=== PATIENT | male | born 1940 | race Caucasian/White ===

== ENCOUNTER 2023-01-23 15:32 | Emergency (ER) | payer OTHER ==
[~2023-01-23] VITALS: Ht 175.3 cm; Wt 94.3 kg
[2023-01-23 16:10] LABS: BASOPHILS # (AUTO) 0.03 K/uL (0.00-0.20); BASOPHILS % (AUTO) 0.5 % (0.0-5.0); EOSINOPHILS # (AUTO) 0.06 K/uL (0.00-0.70); HEMATOCRIT 21.4 % (42-54); IMMATURE GRANULOCYTE ABSOLUTE 0.05 K/uL (0-1); LYMPHOCYTES # (AUTO) 0.9 K/uL (1.0-4.8); LYMPHOCYTES % (AUTO) 15.4 % (21.0-51.0); MEAN CORPUSCULAR HEMOGLOBIN 33.5 pg (27.0-33.0); MEAN CORPUSCULAR HGB CONC 30.4 g/dL (32.0-36.0); MEAN CORPUSCULAR VOLUME 110.3 fL (79-99); MONOCYTES # (AUTO) 0.9 K/uL (0.1-1.0); MONOCYTES % (AUTO) 15.5 % (3.0-13.0); NEUTROPHILS # (AUTO) 3.8 K/uL (1.8-7.7); NEUTROPHILS % (AUTO) 66.7 % (40.0-77.0); PLATELET COUNT (AUTO) 166 K/uL (130-400); RED BLOOD CELL COUNT(AUTO) 1.94 MIL/uL (4.50-6.20); RED CELL DISTRIBUTION WIDTH 17.4 % (11.0-15.5); WHITE BLOOD COUNT (AUTO) 5.7 K/uL (4.8-10.8)
[2023-01-23 16:20] LABS: CREATININE 0.9 mg/dL (0.5-1.5); POTASSIUM 4.4 mmol/L (3.5-5.1)
[2023-01-23 16:24] LABS: ALBUMIN 2.8 g/dL (3.5-5.0); BILIRUBIN,TOTAL 0.4 mg/dL (0.2-1.0); TOTAL PROTEIN, SERUM 6.4 g/dL (6.0-8.3)
[2023-01-23 18:59] VITALS: O2SAT 94
[2023-01-23 20:07] VITALS: BP 132/48; PULSE 99; RESP 17
== END 2023-01-23 20:05 | disposition left against medical advice (07) ==
LOC: EDH 15:32
DX: R79.89 Other specified abnormal findings of blood chemistry (principal); I10 Essential (primary) hypertension
CPT/HCPCS: 99285; 36430; 82270; 80053; 85025; 86850; 86900; 86901; 86923; 36415; P9016

== ENCOUNTER 2024-03-16 12:28 | Inpatient (IN) | payer OTHER ==
[~2024-03-16] VITALS: Ht 175.3 cm; Wt 91.0 kg
--- NOTE | 2024-03-16 13:04 | EKG ---
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
[2024-03-16 13:33] LABS: BASOPHILS # (AUTO) 0.11 K/uL (0.00-0.20); BASOPHILS % (AUTO) 1.1 % (0.0-5.0); EOSINOPHILS # (AUTO) 0.11 K/uL (0.00-0.70); EOSINOPHILS % (AUTO) 1.1 % (0.0-8.0); HEMATOCRIT 35.5 % (42-54); IMMATURE GRANULOCYTE ABSOLUTE 0.05 K/uL (0-1); LYMPHOCYTES # (AUTO) 1.2 K/uL (1.0-4.8); LYMPHOCYTES % (AUTO) 11.7 % (21.0-51.0); MEAN CORPUSCULAR HEMOGLOBIN 34.9 pg (27.0-33.0); MONOCYTES # (AUTO) 1.2 K/uL (0.1-1.0); MONOCYTES % (AUTO) 11.7 % (3.0-13.0); NEUTROPHILS # (AUTO) 7.3 K/uL (1.8-7.7); NEUTROPHILS % (AUTO) 73.9 % (40.0-77.0); PLATELET COUNT (AUTO) 159 K/uL (130-400); RED BLOOD CELL COUNT(AUTO) 3.35 MIL/uL (4.50-6.20); RED CELL DISTRIBUTION WIDTH 15.7 % (11.0-15.5); WHITE BLOOD COUNT (AUTO) 9.9 K/uL (4.8-10.8)
[2024-03-16 13:41] LABS: POTASSIUM 4.5 mmol/L (3.5-5.1)
[2024-03-16 13:45] LABS: ALBUMIN 3.6 g/dL (3.5-5.0); BILIRUBIN,DIRECT 0.3 mg/dL (0.0-0.3); BILIRUBIN,TOTAL 0.9 mg/dL (0.2-1.0); TOTAL PROTEIN, SERUM 7.7 g/dL (6.0-8.3)
[2024-03-16 13:52] LABS: INR 0.97 (0.85-1.15); PROTHROMBIN TIME 10.9 SEC (9.6-11.6)
--- NOTE | 2024-03-16 14:11 | HMCIMG ---
CHEST 1VW REASON: sob COMPARISON: None. FINDINGS: Single view of the chest was obtained. Lungs are clear. Heart size is normal. There is no pulmonary vascular congestion. Mediastinum and bony thorax appear unremarkable. IMPRESSION: 1. Normal single view chest x-ray.
[2024-03-16 14:14] LABS: B-TYPE NATRIURETIC PEPTIDE 625 pg/mL (0-100)
--- NOTE | 2024-03-16 14:24 | ERN ---
ED Note History of Present Illness Stated Complaint: SOB HX OF ANEMIA Chief Complaint: Shortness of Breath Time Seen by MD: 12:39 Dictation: 83-year-old male with a history of anemia presents to the ED for evaluation of shortness a breath onset one week ago. Patient reports palpitations, but denies any other associated symptoms at this time. Patient also mentioned he sometimes gets blood transfusions. Allergies: Coded Allergies: No Known Allergies (Unverified Allergy, Unknown, 01/23/23) Past Medical History Past Medical History: A-Fib, Anemia, CAD Surgical History: Other Surgical History Other: HIP Review of System Dictation Constitutional: Negative for fever,chills, and weight loss Eyes: Negative for injury, pain,redness, and discharge ENT: Negative for injury,pain or swelling Cardiovascular: Positive for palpitations,Negative for chest pain, and edema Respiratory: Positive for shortness of breath negative for cough, and wheezing, Abdomen/GI: Negative for abdominal pain, nausea, vomiting, diarrhea, and constipation Back: Negative for injury and pain : Negative for injury, bleeding and discharge MS/Extremity: Negative for injury and deformity Skin: Negative for rash, and discoloration Neuro: Negative for headache, weakness, numbness, tingling, and seizure Psych: Negative for suicide ideation, homicidal ideation, and hallucinations Initial Vital Sign VS Vital Signs Date Time Temp Pulse Resp B/P (MAP) Pulse Ox O2 Delivery O2 Flow Rate FiO2 03/16/24 14:10 98.1 104 20 127/76 96 Room Air 0 Physical Exam Dictation General: awake, alert, NAD Head/Face: Normocephalic, atraumatic Eyes: PERRL, EOMI, vision at baseline ENT: oral cavity clear, TMs clear, no signs of infection Neck: Trachea midline, supple, no nuchal rigidity Cardiovascular: Tachycardic, No MRGs, no JVD Respiratory: CTAB, no respiratory distress, No rales or wheezes Abdomen: Soft, non-tender, non-distended, normal bowel sounds, no guarding or rebound. Skin: Warm, dry, normal turgor, no rash MS/Extremity: Pulses equal, no cyanosis, neurovascular intact, FROM Neuro: COAx4, GCS 15, strength 5/5, CN 2-12 intact, normal cerebellar exam, normal gait, Psych: Normal behavior, mood, and affect normal Results (Laboratory/Radiology) Laboratory/Radiology Laboratory Tests Test 03/16/24 13:17 03/16/24 14:15 White Blood Count 9.9 K/uL (4.8-10.8) Red Blood Count 3.35 MIL/uL (4.50-6.20) L Hemoglobin 11.7 g/dL (14.0-18.0) L Hematocrit 35.5 % (42-54) L Mean Corpuscular Volume 106.0 fL (79-99) H Mean Corpuscular Hemoglobin 34.9 pg (27.0-33.0) H Mean Corpuscular Hemoglobin Concent 33.0 g/dL (32.0-36.0) Red Cell Distribution Width 15.7 % (11.0-15.5) H Platelet Count 159 K/uL (130-400) Mean Platelet Volume 10.2 fL (7.5-10.5) Immature Granulocyte % (Auto) 0.5 % (0-1) Neutrophils (%) (Auto) 73.9 % (40.0-77.0) Lymphocytes (%) (Auto) 11.7 % (21.0-51.0) L Monocytes (%) (Auto) 11.7 % (3.0-13.0) Eosinophils (%) (Auto) 1.1 % (0.0-8.0) Basophils (%) (Auto) 1.1 % (0.0-5.0) Neutrophils # (Auto) 7.3 K/uL (1.8-7.7) Lymphocytes # (Auto) 1.2 K/uL (1.0-4.8) Monocytes # (Auto) 1.2 K/uL (0.1-1.0) H Eosinophils # (Auto) 0.11 K/uL (0.00-0.70) Basophils # (Auto) 0.11 K/uL (0.00-0.20) Absolute Immature Granulocyte (auto 0.05 K/uL (0-1) Nucleated Red Blood Cells 0.0 % (0.0-0.19) Red Blood Cell Morphology See comments Prothrombin Time 10.9 SEC (9.6-11.6) Prothromb Time International Ratio 0.97 (0.85-1.15) Activated Partial Thromboplast Time 27.0 SEC (26.3-35.5) Sodium Level 129 mmol/L (136-145) L Potassium Level 4.5 mmol/L (3.5-5.1) Chloride Level 95 mmol/L (101-111) L Carbon Dioxide Level 26 mmol/L (21-32) Blood Urea Nitrogen 16 mg/dL (7-18) Creatinine 1.0 mg/dL (0.5-1.3) Glomerular Filtration Rate Calc 75 mL/min (>90) Random Glucose 129 mg/dL (70-105) H Lactic Acid Level 2.0 mmol/L (0.8-2.5) Total Calcium 9.0 mg/dL (8.5-10.1) Iron Level 95 mcg/dL (65-175) Total Iron Binding Capacity 410 mcg/dL (250-450) Percent Iron Saturation 23.1 % (30-44) L Total Bilirubin 0.9 mg/dL (0.2-1.0) Direct Bilirubin 0.3 mg/dL (0.0-0.3) Aspartate Amino Transf (AST/SGOT) 44 U/L (10-37) H Alanine Aminotransferase (ALT/SGPT) 45 U/L (12-78) Alkaline Phosphatase 139 U/L (50-136) H Total Creatine Kinase 48 U/L (21-232) Troponin I High Sensitivity 48 ng/L (4-75) B-Type Natriuretic Peptide 625 pg/mL (0-100) H Total Protein 7.7 g/dL (6.0-8.3) Albumin 3.6 g/dL (3.5-5.0) Urine Color YELLOW (YELLOW) Urine Appearance CLEAR (CLEAR) Urine pH 6.0 (5.0-8.0) Urine Specific [place] 1.036 (1.001-1.031) Urine Protein 30 mg/dL (NEGATIVE) H Urine Glucose (UA) NEGATIVE mg/dL (NEGATIVE) Urine Ketones NEGATIVE mg/dL (NEGATIVE) Urine Occult Blood NEGATIVE (NEGATIVE) Urine Nitrate NEGATIVE (NEGATIVE) Urine Bilirubin NEGATIVE mg/dL (NEGATIVE) Urine Urobilinogen 2.0 mg/dL (0.2-1.0) H Urine Leukocyte Esterase NEGATIVE Sherwin/uL Urine RBC 2-5 /HPF (0-1) H Urine WBC 0-1 /HPF (0-1) Urine Bacteria None /HPF (None Seen) Influenza Type A Antigen Negative For Type A Influenza Type B Antigen Negative For Type B Labs Reviewed?: Yes EKG Comment: EKG 03/16/2024 time 12:56 p.m. ventricular rate 112, QRS D 101, QT 367. Atrial fibrillation, repol abnrm suggest ischemia, anterolateral. Prolonged QT interval. No STEMI ED Course ED Course Orders Procedure Category Date Status Time 12 Lead Ekg Tracing- EKG 03/16/24 Complete Technical 12:40 B-Type Natriuretic LAB 03/16/24 Complete Peptide 12:40 Basic Metabolic Panel LAB 03/16/24 Complete 12:40 Blood Cult SIVAN 03/16/24 In Process 12:40 Cbc With Differential LAB 03/16/24 Complete 12:40 Hepatic Function Panel LAB 03/16/24 Complete 12:40 Creatine Kinase, Total LAB 03/16/24 Complete 12:40 Lactic Acid LAB 03/16/24 Complete 12:40 Pt And Ptt LAB 03/16/24 Complete 12:40 Troponin I High LAB 03/16/24 Complete Sensitivity 12:40 Urinalysis Profile LAB 03/16/24 Complete 12:40 Chest 1vw RAD 03/16/24 Resulted 12:40 Influenza Type A & B, LAB 03/16/24 Complete Rapid 12:40 Metoprolol Tartrate PHA 03/16/24 Complete (Lopressor) 14:30 Admit Orders ADM 03/16/24 Transmitted 16:38 Metoprolol Tartrate PHA 03/16/24 In Process 25 Mg Tab (Lopressor 21:00 Apply Scds CPOE 03/16/24 Transmitted 17:02 Cardiology Consult CONPHYSVC 03/16/24 Transmitted 17:02 Pantoprazole 40mg Tab PHA 03/17/24 In Process (Protonix 40mg Tab 09:00 Pantoprazole 40mg Tab PHA 03/16/24 Complete (Protonix 40mg Tab 17:30 Furosemide 40mg Vial PHA 03/16/24 Complete (Lasix 40mg Vial) 17:30 Furosemide 20mg Vial PHA 03/17/24 In Process (Lasix 20mg Vial) 09:00 Echo 2-D Complete ECHO 03/16/24 Logged 17:02 Acetaminophen 325 Tab PHA 03/16/24 In Process (Tylenol 325mg Tab 17:30 Ondansetron 4mg Inj PHA 03/16/24 In Process (Zofran 4mg Inj) 17:30 Heart Healthy Diet DIET 03/17/24 Transmitted Breakfast Urinalysis Profile LAB 03/16/24 Logged 17:15 Daily Fluid Intake CPOE 03/16/24 Transmitted Restriction 17:15 Iron Panel With %Sat LAB 03/16/24 Complete 17:17 Occult Blood Stool LAB 03/16/24 Logged Single Only 17:17 *Nursing CPOE 03/16/24 Transmitted Communication: 17:17 Cbc Without LAB 03/16/24 Logged Differential 21:00 Cbc Without LAB 03/17/24 Verified Differential 09:00 Cbc Without LAB 03/17/24 Verified Differential 13:00 Cbc Without LAB 03/17/24 Verified Differential 17:00 Cbc Without LAB 03/17/24 Verified Differential 21:00 Magnesium 2gm Premix PHA 03/16/24 In Process 50ml (Magnesium 2gm 17:30 Initiate Po WILL 03/16/24 In Process Hypokalemia Protoc 17:21 Potassium Chloride PHA 03/16/24 In Process 20meq/100ml (Potassiu 17:30 Potassium Chl 10% PHA 03/16/24 In Process Elixir 20meq (Kcl 10% 17:30 Potassium Chloride PHA 03/16/24 In Process 20meq Er (K-Dur/Klor- 17:30 Notify Physician If CPOE 03/16/24 Transmitted There Is 17:21 Notify Md On The Next CPOE 03/16/24 Transmitted 17:21 Notify Md On The CPOE 03/16/24 Transmitted Next(Cont.) 17:21 Thyroid Stimulating LAB 03/17/24 Verified Hormone 04:00 Lipid Panel LAB 03/17/24 Verified 04:00 Enoxaparin Sodium 100 PHA 03/17/24 In Process Mg/1 Ml (Lovenox) 09:00 Enoxaparin Sodium 100 PHA 03/16/24 Complete Mg/1 Ml (Lovenox) 17:30 Current Medications Medications (Trade) Dose Ordered Sig/Sandeep Route PRN Reason Start Time Stop Time Status Last Admin Dose Admin Metoprolol Tartrate (loprESSOR) 5 mg ONCE ONCE IV 03/16/24 14:30 03/16/24 14:31 DC Vital Signs Date Time Temp Pulse Resp B/P (MAP) Pulse Ox O2 Delivery O2 Flow Rate FiO2 03/16/24 14:10 98.1 104 20 127/76 96 Room Air 0 HEART Score Response (Comments) Value History: Low suspicion (0) 0 EKG: Repolarization changes 1 Age: > 65yrs (+2) 2 Risk Factors: 1-2 risk factors (+1) 1 Initial Troponin: Normal limit (0) 0 HEART Score Risk: Mod Risk for MACE (4-6) Total 4 Medical Decision Making MDM MDM: Differential diagnosis: Dyspnea, new onset AFib RVR [id number]-hospitalist consult, accepts patient for admission Rationale: Tests considered and ordered secondary to shared decision making include: labs, ECG and radiology Risk of complication and/or morbidity or mortality of patient management: None Medications-Per medication reconciliation Need for hospitalization: Patient does meet criteria for hospitalization. Need for emergency major/minor surgery: No There are no social concerns with this patient. I independently interpreted the test that were performed, results were reviewed by me and considered findings on radiology if ordered. Medical management and examination interpretation discussions were had by me with other qualified healthcare professionals as indicated for the patient's care. DX & DISP Disposition: Inpatient Decision to Admit Date: Mar 16, 2024 Decision to Admit Time: 16:38 Departure Impression: Primary Impression: Atrial fibrillation with RVR Additional Impression: New onset a-fib Condition: Stable Referrals: SELF,REFERRAL (PCP) I personally scribed for ASHLEY LEBRON MD ([email or web address]) on 03/16/24 at 16:40. Electronically submitted by Ekta Waggoner ([email or web address]). ASHLEY LEBRON MD Mar 16, 2024 14:24
[2024-03-16 14:54] LABS: APPEARANCE,URINE CLEAR (CLEAR); BILIRUBIN,URINE NEGATIVE (NEGATIVE); COLOR,URINE YELLOW (YELLOW); GLUCOSE, URINE (UA) NEGATIVE (NEGATIVE); KETONES,URINE NEGATIVE (NEGATIVE); LEUKOCYTE ESTERASE ,URINE NEGATIVE Leu/uL (NEGATIVE); NITRATE,URINE NEGATIVE (NEGATIVE); OCCULT BLOOD,URINE NEGATIVE (NEGATIVE); PROTEIN,URINE 30 mg/dL (NEGATIVE)
[2024-03-16 15:05] LABS: ADD UA MICROSCOPIC YES; INFLUENZA TYPE A Negative For Type A (NEGATIVE); INFLUENZA TYPE B Negative For Type B (NEGATIVE)
[2024-03-16 15:08] LABS: MUCUS,URINE RARE LPF (None Seen); WBC,URINE 0-1 /HPF (0-1)
--- NOTE | 2024-03-16 17:21 | HP ---
[facility] PHYS[facility] Date of Service: Mar 16, 2024 Time of Service: 16:40 HISTORY OF PRESENT ILLNESS: [ ] Admission date 03/16/2024 PCP self-referred This is a 83-year-old male who is a went to [place] presents in ED with shortness a breath onset for one-week. Severity severe. Aggravated minimal exertion alleviating factors rest. Patient vital signs done showed AFib with RVR heart rate 110 120s. Patient reports that he was placed on Lasix for three weeks and was told that he had to follow-up the nut culler's but patient reports no recent AFib RVR in the past. ER physician gave a dose of Lopressor IV. Patient reports he has a history of anemia and stomach ulcers. He denies GI bleeds hx, melena, dark tardy stools and Hematuria. Dr. Dunn had a long discussion with patient's on anticoagulation therapy on risks and benefits. The patient understood the risk and benefits and want to proceed with treatment. the patient is fully awake and alert oriented x3 Patient was seen in triage noted with shortness a breath then relieved at rest. REVIEW OF SYSTEMS A 14 point ROS obtained all relevant positives documented otherwise ROS negative PAST MEDICAL HISTORY: [ ] Refer to HPI PAST SURGICAL HISTORY: [ ] TCAR, right hip surgery PAST SOCIAL HISTORY: [ ] Denies smoking tobacco product: former smokers drink on occasionally. FAMILY HISTORY: [ ] Coded Allergies: No Known Allergies (Unverified Allergy, Unknown, 01/23/23) PHYSICAL EXAM GENERAL APPEARANCE: The patient is awake, alert, and oriented, in no acute cardiopulmonary distress. NEUROLOGICAL: Cranial nerves II-XII grossly intact. Motor is 5/5 in bilateral upper and lower extremities proximal to distal. No sensory deficits. HEENT: Face is symmetric. Pupils are equal and reactive. Extraocular movements are intact. NECK: Supple. No JVD. No thyromegaly. No submental, submandibular, pre- /postauricular, occipital or supraclavicular lymphadenopathy. CHEST: Normal chest expansion. No Telemetry. LUNGS: Absence of any rales, rhonchi or any wheezing. CARDIOVASCULAR: Regular. S1 and S2 normal. No appreciable rubs, murmurs or gallops. ABDOMEN: Soft, nontender, and nondistended. There is no rebound, voluntary guarding, or rigidity. : Deferred. No Keenan. EXTREMITIES: Non-edematous and not cyanotic. No clubbing. Good capillary refill. SKIN: No skin breakdown. Vital Sign (Last 24 Hours) 03/16/24 14:10 Temp 98.1 Pulse 104 Resp 20 B/P (MAP) 127/76 Pulse Ox 96 O2 Delivery Room Air O2 Flow Rate 0 LABS: Laboratory: Test 03/16/24 14:15 03/16/24 13:17 Range/Units Urine Color YELLOW YELLOW Urine Appearance CLEAR CLEAR Urine pH 6.0 5.0-8.0 Urine Specific [place] 1.036 H 1.001-1.031 Urine Protein 30 H NEGATIVE mg/dL Urine Glucose (UA) NEGATIVE NEGATIVE mg/dL Urine Ketones NEGATIVE NEGATIVE mg/dL Urine Occult Blood NEGATIVE NEGATIVE Urine Nitrate NEGATIVE NEGATIVE Urine Bilirubin NEGATIVE NEGATIVE mg/dL Urine Urobilinogen 2.0 H 0.2-1.0 mg/dL Urine Leukocyte Esterase NEGATIVE NEGATIVE Sherwin/uL Urine RBC 2-5 H 0-1 /HPF Urine WBC 0-1 0-1 /HPF Urine Bacteria None None Seen /HPF Influenza Type A Antigen Negative For Type A NEGATIVE Influenza Type B Antigen Negative For Type B NEGATIVE White Blood Count 9.9 4.8-10.8 K/uL Red Blood Count 3.35 L 4.50-6.20 MIL/uL Hemoglobin 11.7 L 14.0-18.0 g/dL Hematocrit 35.5 L 42-54 % Mean Corpuscular Volume 106.0 H 79-99 fL Mean Corpuscular Hemoglobin 34.9 H 27.0-33.0 pg Mean Corpuscular Hemoglobin Concent 33.0 32.0-36.0 g/dL Red Cell Distribution Width 15.7 H 11.0-15.5 % Platelet Count 159 130-400 K/uL Mean Platelet Volume 10.2 7.5-10.5 fL Immature Granulocyte % (Auto) 0.5 0-1 % Neutrophils (%) (Auto) 73.9 40.0-77.0 % Lymphocytes (%) (Auto) 11.7 L 21.0-51.0 % Monocytes (%) (Auto) 11.7 3.0-13.0 % Eosinophils (%) (Auto) 1.1 0.0-8.0 % Basophils (%) (Auto) 1.1 0.0-5.0 % Neutrophils # (Auto) 7.3 1.8-7.7 K/uL Lymphocytes # (Auto) 1.2 1.0-4.8 K/uL Monocytes # (Auto) 1.2 H 0.1-1.0 K/uL Eosinophils # (Auto) 0.11 0.00-0.70 K/uL Basophils # (Auto) 0.11 0.00-0.20 K/uL Absolute Immature Granulocyte (auto 0.05 0-1 K/uL Nucleated Red Blood Cells 0.0 0.0-0.19 % Red Blood Cell Morphology See comments Prothrombin Time 10.9 9.6-11.6 SEC Prothromb Time International Ratio 0.97 0.85-1.15 Activated Partial Thromboplast Time 27.0 26.3-35.5 SEC Sodium Level 129 L 136-145 mmol/L Potassium Level 4.5 3.5-5.1 mmol/L Chloride Level 95 L 101-111 mmol/L Carbon Dioxide Level 26 21-32 mmol/L Blood Urea Nitrogen 16 7-18 mg/dL Creatinine 1.0 0.5-1.3 mg/dL Glomerular Filtration Rate Calc 75 >90 mL/min Random Glucose 129 H 70-105 mg/dL Lactic Acid Level 2.0 0.8-2.5 mmol/L Total Calcium 9.0 8.5-10.1 mg/dL Total Bilirubin 0.9 0.2-1.0 mg/dL Direct Bilirubin 0.3 0.0-0.3 mg/dL Aspartate Amino Transf (AST/SGOT) 44 H 10-37 U/L Alanine Aminotransferase (ALT/SGPT) 45 12-78 U/L Alkaline Phosphatase 139 H 50-136 U/L Total Creatine Kinase 48 21-232 U/L Troponin I High Sensitivity 48 4-75 ng/L B-Type Natriuretic Peptide 625 H 0-100 pg/mL Total Protein 7.7 6.0-8.3 g/dL Albumin 3.6 3.5-5.0 g/dL DIAGNOSTICS / RADIOLOGY: [ ] ASSESSMENT: Acute respiratory distress with minimal exertion POA AFib RVR POA Fluid overload suspecting heart failure Hyponatremia Chronic problems Hypertension, hyperlipidemia, history of anemia GI ulcers. PLAN: Admit: Medical-surgical with tele condition: Guarded Status: Full code IVF: Hep-Lock [facility] nut culler: Antibiotics: none Test: Echo to evaluate LV function Medications: [id number] mg b.i.d., Lasix 40 mg x 1 now then 20 mg IV b.i.d. Lovenox1 milligram/kilos x1 now then daily Labs cbc, cmp, mag+ TSH lipid anemia profile, OB x1, Type screen Replace electrolytes as needed as per protocol to keep potassium above 4.0 magnesium 2.0. Home medication pending to be reviewed by RN Fall precautions Fluid restriction 1.5 L daily BNP in a.m. We will monitor H&H trends: If hemoglobin drops we will discontinue Lovenox. for acute bleeding PRN: MEDICATIONS Tylenol 650 mg po every 4 hrs for fever Zofran 4 mg IV every 6 hrs for n/v Hydralazine 5 mg IV every 4 hrs systolic pressure > 160 bowel regiment: lactulose 20 gm PO BID PRN constipation Pain management: Tylenol 650 mg Supportive measures: DVT ppx, GI ppx all questions answered time spent: > 35 min Supervising MD: Dr. nickerson/chivo This document was generated in part using voice recognition software, occasional wrong word or sound alike substitutions may have occurred due to the inherent limitations of voice recognition software. Read the chart carefully and recognize using context, where the substitutions have occurred. Although every effort was made to edit the content, care aide and typing errors may occur ADVANCED CARE PLANNING 1. Which of the following were discussed? Hospice Care - Yes / No Therapeutic options - Yes / No Advance Directives - Yes / No Other discussions - 2. Discussed with who? 3. Voluntary nature of this service was explained to the patient? Yes / No 4. Amount of time spent - 5. Reviewed by Physician? (if this service was performed by NPP) Yes / No ATTESTATION BY PHYSICIAN I have seen and examined the patient. I reviewed the documentation, medical decision making, and treatment plan as noted by the mid-level provider above. I agree with the findings and plan of care. ELVIA DUNN MD, ELIZABETH NP Mar 16, 2024 17:21
[2024-03-16] MEDS ORDERED: PoTASSium chloRIDE 20MEQ/100ML 100 ML IV PRN (17:30)
[2024-03-16] MEDS ORDERED: acetaMINOPHEN 325 MG TAB PO PRN (17:30)
[2024-03-16] MEDS ORDERED: PoTASSium chloRIDE 20MEQ ER 20 MEQ ERTAB PO PRN (17:30)
[2024-03-16] MEDS ORDERED: PoTASSium chl 10% ELIXIR 20MEQ 20 MEQ/15 ML UDCUP PO PRN (17:30)
[2024-03-16] MEDS ORDERED: MAGNESIUM 2GM PREMIX 50ML 50 ML IV PRN (17:30)
[2024-03-16] MEDS ORDERED: ondanSETRON 4MG INJ IVP PRN (17:30)
[2024-03-16 18:00] LABS: % IRON SATURATION 23.1 % (30-44)
[2024-03-16] MEDS: ENOXAPARIN SODIUM 100 MG/1 ML SQ ONE (18:07)
[2024-03-16] MEDS: PANTOPrazole 40 MG TAB DR PO ONE (18:07)
[2024-03-16] MEDS: furoSEMIDE 40MG VIAL IV ONE (18:07)
[2024-03-16] MEDS: metoPROLOL tartRATE 1 MG/ML 5ML VIAL IV ONE (18:23)
--- NOTE | 2024-03-16 19:04 | NUR ---
PATIENTS EKG PATINTS RHYTHM IS RUNNING AFIB WITH MULTIFOCAL PVCS ADMINISTERED LOPRESSOR WAITING TO ADMINSTER LASIX
[2024-03-16 20:51] LABS: HEMATOCRIT 33.2 % (42-54); MEAN CORPUSCULAR HEMOGLOBIN 34.8 pg (27.0-33.0); MEAN CORPUSCULAR HGB CONC 33.1 g/dL (32.0-36.0); MEAN CORPUSCULAR VOLUME 105.1 fL (79-99); RED BLOOD CELL COUNT(AUTO) 3.16 MIL/uL (4.50-6.20); RED CELL DISTRIBUTION WIDTH 15.8 % (11.0-15.5); WHITE BLOOD COUNT (AUTO) 8.2 K/uL (4.8-10.8)
[2024-03-17] VITALS (8 sets, daily range): BP systolic 118–146; BP diastolic 71–86; PULSE 66–95; RESP 18–20; TEMP 97.9–98.6; O2SAT 97–99
[2024-03-17] MEDS: metoPROLOL tartRATE 25 MG TAB PO SCH (00:29)
[2024-03-17 07:15] LABS: HEMATOCRIT 33.1 % (42-54); MEAN CORPUSCULAR HEMOGLOBIN 35.4 pg (27.0-33.0); MEAN CORPUSCULAR HGB CONC 33.2 g/dL (32.0-36.0); MEAN CORPUSCULAR VOLUME 106.4 fL (79-99); RED BLOOD CELL COUNT(AUTO) 3.11 MIL/uL (4.50-6.20); WHITE BLOOD COUNT (AUTO) 6.2 K/uL (4.8-10.8)
[2024-03-17 08:09] LABS: THYROID STIMULATING HORMONE 2.7 uIU/mL (0.36-3.74)
[2024-03-17] MEDS ORDERED: ENOXAPARIN SODIUM 100 MG/1 ML SQ SCH (09:00)
--- NOTE | 2024-03-17 10:12 | PN ---
[facility] PROGRESS NOTE Date of Service: Mar 17, 2024 Time of Service: 10:08 SUBJECTIVE: [ ] This is a 83-year-old male who is a went to [place] presents in ED with shortness a breath onset for one-week. Severity severe. Aggravated minimal exertion alleviating factors rest. Patient vital signs done showed AFib with RVR heart rate 110 120s 03/17/2024 patient is seen and examined remains in ED holding. Patient is fully awake alert oriented x3 denies any palpitations. Continues with dyspnea with minimal exertion. Echo done. REVIEW OF SYSTEMS A 14 point ROS obtained all relevant positives documented otherwise ROS negative PHYSICAL EXAM GENERAL APPEARANCE: The patient is awake, alert, and oriented, in no acute cardiopulmonary distress. NEUROLOGICAL: Cranial nerves II-XII grossly intact. Motor is 5/5 in bilateral upper and lower extremities proximal to distal. No sensory deficits. HEENT: Face is symmetric. Pupils are equal and reactive. Extraocular movements are intact. NECK: Supple. No JVD. No thyromegaly. No submental, submandibular, pre-/postauricular, occipital or supraclavicular lymphadenopathy. CHEST: Normal chest expansion. No Telemetry. LUNGS: Absence of any rales, rhonchi or any wheezing. CARDIOVASCULAR: Regular. S1 and S2 normal. No appreciable rubs, murmurs or gallops. ABDOMEN: Soft, nontender, and nondistended. There is no rebound, voluntary guarding, or rigidity. : Deferred. No Keenan. EXTREMITIES: Non-edematous and not cyanotic. No clubbing. Good capillary refill. SKIN: No skin breakdown. Vital Signs (last 8hr) Date Time Temp Pulse Resp B/P (MAP) Pulse Ox O2 Delivery O2 Flow Rate FiO2 03/17/24 04:11 98.8 76 20 110/77 99 Room Air* 0 21 LABS: Laboratory: Test 03/17/24 06:58 03/16/24 14:15 03/16/24 13:17 Range/Units White Blood Count 6.2 4.8-10.8 K/uL Red Blood Count 3.11 L 4.50-6.20 MIL/uL Hemoglobin 11.0 L 14.0-18.0 g/dL Hematocrit 33.1 L 42-54 % Mean Corpuscular Volume 106.4 H 79-99 fL Mean Corpuscular Hemoglobin 35.4 H 27.0-33.0 pg Mean Corpuscular Hemoglobin Concent 33.2 32.0-36.0 g/dL Red Cell Distribution Width 16.0 H 11.0-15.5 % Platelet Count 134 130-400 K/uL Mean Platelet Volume 9.8 7.5-10.5 fL Nucleated Red Blood Cells 0.0 0.0-0.19 % Triglycerides Level 143 30-200 mg/dL Cholesterol Level 156 <200 mg/dL LDL Cholesterol 85 0-99 mg/dL HDL Cholesterol 58 29-71 mg/dL Thyroid Stimulating Hormone (TSH) 2.70 0.36-3.74 uIU/mL Urine Color YELLOW YELLOW Urine Appearance CLEAR CLEAR Urine pH 6.0 5.0-8.0 Urine Specific Alvord 1.036 H 1.001-1.031 Urine Protein 30 H NEGATIVE mg/dL Urine Glucose (UA) NEGATIVE NEGATIVE mg/dL Urine Ketones NEGATIVE NEGATIVE mg/dL Urine Occult Blood NEGATIVE NEGATIVE Urine Nitrate NEGATIVE NEGATIVE Urine Bilirubin NEGATIVE NEGATIVE mg/dL Urine Urobilinogen 2.0 H 0.2-1.0 mg/dL Urine Leukocyte Esterase NEGATIVE NEGATIVE Sherwin/uL Urine RBC 2-5 H 0-1 /HPF Urine WBC 0-1 0-1 /HPF Urine Bacteria None None Seen /HPF Influenza Type A Antigen Negative For Type A NEGATIVE Influenza Type B Antigen Negative For Type B NEGATIVE Immature Granulocyte % (Auto) 0.5 0-1 % Neutrophils (%) (Auto) 73.9 40.0-77.0 % Lymphocytes (%) (Auto) 11.7 L 21.0-51.0 % Monocytes (%) (Auto) 11.7 3.0-13.0 % Eosinophils (%) (Auto) 1.1 0.0-8.0 % Basophils (%) (Auto) 1.1 0.0-5.0 % Neutrophils # (Auto) 7.3 1.8-7.7 K/uL Lymphocytes # (Auto) 1.2 1.0-4.8 K/uL Monocytes # (Auto) 1.2 H 0.1-1.0 K/uL Eosinophils # (Auto) 0.11 0.00-0.70 K/uL Basophils # (Auto) 0.11 0.00-0.20 K/uL Absolute Immature Granulocyte (auto 0.05 0-1 K/uL Red Blood Cell Morphology See comments Prothrombin Time 10.9 9.6-11.6 SEC Prothromb Time International Ratio 0.97 0.85-1.15 Activated Partial Thromboplast Time 27.0 26.3-35.5 SEC Sodium Level 129 L 136-145 mmol/L Potassium Level 4.5 3.5-5.1 mmol/L Chloride Level 95 L 101-111 mmol/L Carbon Dioxide Level 26 21-32 mmol/L Blood Urea Nitrogen 16 7-18 mg/dL Creatinine 1.0 0.5-1.3 mg/dL Glomerular Filtration Rate Calc 75 >90 mL/min Random Glucose 129 H 70-105 mg/dL Lactic Acid Level 2.0 0.8-2.5 mmol/L Total Calcium 9.0 8.5-10.1 mg/dL Iron Level 95 65-175 mcg/dL Total Iron Binding Capacity 410 250-450 mcg/dL Percent Iron Saturation 23.1 L 30-44 % Total Bilirubin 0.9 0.2-1.0 mg/dL Direct Bilirubin 0.3 0.0-0.3 mg/dL Aspartate Amino Transf (AST/SGOT) 44 H 10-37 U/L Alanine Aminotransferase (ALT/SGPT) 45 12-78 U/L Alkaline Phosphatase 139 H 50-136 U/L Total Creatine Kinase 48 21-232 U/L Troponin I High Sensitivity 48 4-75 ng/L B-Type Natriuretic Peptide 625 H 0-100 pg/mL Total Protein 7.7 6.0-8.3 g/dL Albumin 3.6 3.5-5.0 g/dL Current Medications Medications (Trade) Dose Ordered Sig/Sandeep Route PRN Reason Start Time Stop Time Status Last Admin Dose Admin Acetaminophen (TYLenol 325MG TAB) 650 mg Q4H PRN PO TEMPERATURE GREATER THAN 101.5 03/16/24 17:30 04/15/24 17:29 Enoxaparin Sodium (Lovenox) 90 mg DAILY SQ 03/17/24 09:00 04/16/24 08:59 Furosemide (LASix 20MG VIAL) 20 mg Q12H IV 03/17/24 09:00 04/16/24 08:59 Magnesium Sulfate 50 ml @ 0 mls/hr PROTOCOL PRN IV low mag level 03/16/24 17:30 04/15/24 17:29 Metoprolol Tartrate (loprESSOR) 25 mg BID PO 03/16/24 21:00 04/15/24 20:59 03/17/24 00:29 25 MG Ondansetron HCl (zoFRAN 4MG INJ) 4 mg Q6H PRN IVP NAUSEA/VOMITING 03/16/24 17:30 04/15/24 17:29 Pantoprazole Sodium (PROTonix 40MG TAB) 40 mg DAILY PO 03/17/24 09:00 04/16/24 08:59 Potassium Chloride 100 ml @ 100 mls/hr AD PRN IV POTASSIUM PROTOCOL 03/16/24 17:30 04/15/24 17:29 Potassium Chloride (K-Dur/Klor-Con 20meq) 20 meq AD PRN PO POTASSIUM PROTOCOL 03/16/24 17:30 04/15/24 17:29 Potassium Chloride (KCl 10% Elixir 20meq/15ml) 20 meq AD PRN PO POTASSIUM PROTOCOL 03/16/24 17:30 04/15/24 17:29 DIAGNOSTICS / RADIOLOGY: [ ] ASSESSMENT: Acute respiratory distress with minimal exertion POA AFib RVR POA Fluid overload suspecting heart failure POA Hyponatremia Chronic problems Hypertension, hyperlipidemia, history of anemia GI ulcers. 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 Lovenox1 milligram/kg daily H&H stable Labs cbc, cmp, mag+ Replace electrolytes as needed as per protocol to keep potassium above 4.0 magnesium 2.0. Home medication pending to be reviewed by RN Fall precautions Fluid restriction 1.5 L daily BNP in a.m. We will monitor H&H trends: If hemoglobin drops we will discontinue Lovenox. for acute bleeding PRN: MEDICATIONS Tylenol 650 mg po every 4 hrs for fever Zofran 4 mg IV every 6 hrs for n/v Hydralazine 5 mg IV every 4 hrs systolic pressure > 160 bowel regiment: lactulose 20 gm PO BID PRN constipation Pain management: Tylenol 650 mg Supportive measures: DVT ppx, GI ppx all questions answered Supervising MD: Dr. c/d This document was generated in part using voice recognition software, occasional wrong word or sound alike substitutions may have occurred due to the inherent limitations of voice recognition software. Read the chart carefully and recognize using context, where the substitutions have occurred. Although every effort was made to edit the content, lineman a class and typing errors may occur ADVANCED CARE PLANNING 1. Which of the following were discussed? Hospice Care - Yes / No Therapeutic options - Yes / No Advance Directives - Yes / No Other discussions - 2. Discussed with who? 3. Voluntary nature of this service was explained to the patient? Yes / No 4. Amount of time spent - 5. Reviewed by Physician? (if this service was performed by NPP) Yes / No ATTESTATION BY PHYSICIAN I have seen and examined the patient. I reviewed the documentation, medical decision making, and treatment plan as noted by the mid-level provider above. I agree with the findings and plan of care. ELVIA DUNN MD, ELIZABETH NP Mar 17, 2024 10:12
--- NOTE | 2024-03-17 10:41 | CONS ---
[facility] Cardiology Consultation Note Date/Time of Consultation: [03/17/2024, 10:22 a.m. ] CHIEF COMPLAINT: [New onset AFib, with RVR ] SOURCE: [ The patient, who is reliable, and the medical record] OUTPATIENT TRIBUNAL MEMBER: [ None] OUTPATIENT PRIMARY MD: [ The [place]] HPI: [Patient is a 83-year-old [place] with a history known aortic stenosis and previous left carotid endarterectomy who presented to the ER after a one week history of pronounced dyspnea on exertion. Patient is established with the [place] in [place]. In November he was experiencing some shortness of breath on exertion and they found some water in his lungs so they gave him some type of diuretic. This seemed to help some, but the past week shortness of breath worsened dramatically and he was only able to walk about 50 ft before he was exhausted. He called the [place] in [place], [facility] and [facility] him to present to [facility] room. On arrival his EKG showed atrial fibrillation with RVR at 112. with some 1 mm anterior depressions. Labs notable for a single normal troponin, BNP of 625, LDL of 58, sodium 129, chloride 95. Chest x-ray showed calcified aortic knob, tiny right pleural effusion and some haziness suggestive of congestive heart failure. Patient was given a dose of Lovenox, a dose of Lasix, and 5 mg of IV metoprolol. He appeared to convert to sinus yesterday evening. He feels much better after receiving these infusions and can walk much farther before getting short of breath. At no point did he have any chest tightness or pressure, leg edema, or dizziness. He did feel his heart pounding when he was exerting himself. Patient denies ever seeing a fuel management handler. He has had a murmur for over 20 years and has had at least three echocardiograms. He says his [place] doctors or worried about the findings. He did have a left carotid endarterectomy about two years ago. He reports a normal nuclear stress test in November at the [place] in [place]. No previous history of arrhythmia. He denies previous stroke, diabetes. He quit smoking in 1979. Drinks occasionally. 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 ] REVIEW OF SYSTEMS: He does have a history of anemia with multiple negative endoscopies. He was told it was his bone marrow. No diabetes, current GI or bleeding, unexplained weight changes, falls. PAST MEDICAL HISTORY: [Aortic stenosis Carotid stenosis with left carotid endarterectomy Paroxysmal atrial fibrillation, new onset ] PAST SURGICAL HISTORY: [ Left carotid endarterectomy Hip replacement] FAMILY HISTORY: [ Father's heart exploded at 70 when he was driving back from [place]] SOCIAL HISTORY: [ Quit smoking in 1979. No alcohol abuse. winteran from [place].] Coded Allergies: No Known Allergies (Unverified Allergy, Unknown, 01/23/23) PHYSICAL EXAMINATION: GENERAL: [Resting comfortably, no acute distress.] HEENT: [Atraumatic. Hearing is intact. No facial asymmetry, nasal discharge, icterus or lid lag.] NECK: [Symmetric. Midline trachea. No bruits noted bilaterally.] CARDIOVASCULAR: [Rhythm and rate regular. 3/6 crescendo systolic murmur, No edema. RESPIRATORY: [Lungs clear to the bases. No retractions, wheezes or rhonchi.] GASTROINTESTINAL: [Benign, soft, nontender, nondistended.] MUSCULOSKELETAL: [No amputations. Range of motion is grossly normal.] SKIN: [No ecchymosis, erythema or ulcers. Warm to touch.] NEUROLOGIC: [No tremors. Speech is clear.] PSYCHIATRY: [Alert and oriented x 3. Cooperative and pleasant.] Vital Signs (last 8hr) Date Time Temp Pulse Resp B/P (MAP) Pulse Ox O2 Delivery O2 Flow Rate FiO2 03/17/24 04:11 98.8 76 20 110/77 99 Room Air* 0 21 Hematology Labs: Test 03/17/24 06:58 03/16/24 13:17 Range/Units White Blood Count 6.2 4.8-10.8 K/uL Red Blood Count 3.11 L 4.50-6.20 MIL/uL Hemoglobin 11.0 L 14.0-18.0 g/dL Hematocrit 33.1 L 42-54 % Mean Corpuscular Volume 106.4 H 79-99 fL Mean Corpuscular Hemoglobin 35.4 H 27.0-33.0 pg Mean Corpuscular Hemoglobin Concent 33.2 32.0-36.0 g/dL Red Cell Distribution Width 16.0 H 11.0-15.5 % Platelet Count 134 130-400 K/uL Mean Platelet Volume 9.8 7.5-10.5 fL Nucleated Red Blood Cells 0.0 0.0-0.19 % Immature Granulocyte % (Auto) 0.5 0-1 % Neutrophils (%) (Auto) 73.9 40.0-77.0 % Lymphocytes (%) (Auto) 11.7 L 21.0-51.0 % Monocytes (%) (Auto) 11.7 3.0-13.0 % Eosinophils (%) (Auto) 1.1 0.0-8.0 % Basophils (%) (Auto) 1.1 0.0-5.0 % Neutrophils # (Auto) 7.3 1.8-7.7 K/uL Lymphocytes # (Auto) 1.2 1.0-4.8 K/uL Monocytes # (Auto) 1.2 H 0.1-1.0 K/uL Eosinophils # (Auto) 0.11 0.00-0.70 K/uL Basophils # (Auto) 0.11 0.00-0.20 K/uL Absolute Immature Granulocyte (auto 0.05 0-1 K/uL Red Blood Cell Morphology See comments Chemistry Labs: Test 03/17/24 06:58 03/16/24 13:17 Range/Units Triglycerides Level 143 30-200 mg/dL Cholesterol Level 156 <200 mg/dL LDL Cholesterol 85 0-99 mg/dL HDL Cholesterol 58 29-71 mg/dL Thyroid Stimulating Hormone (TSH) 2.70 0.36-3.74 uIU/mL Sodium Level 129 L 136-145 mmol/L Potassium Level 4.5 3.5-5.1 mmol/L Chloride Level 95 L 101-111 mmol/L Carbon Dioxide Level 26 21-32 mmol/L Blood Urea Nitrogen 16 7-18 mg/dL Creatinine 1.0 0.5-1.3 mg/dL Glomerular Filtration Rate Calc 75 >90 mL/min Random Glucose 129 H 70-105 mg/dL Lactic Acid Level 2.0 0.8-2.5 mmol/L Total Calcium 9.0 8.5-10.1 mg/dL Iron Level 95 65-175 mcg/dL Total Iron Binding Capacity 410 250-450 mcg/dL Percent Iron Saturation 23.1 L 30-44 % Total Bilirubin 0.9 0.2-1.0 mg/dL Direct Bilirubin 0.3 0.0-0.3 mg/dL Aspartate Amino Transf (AST/SGOT) 44 H 10-37 U/L Alanine Aminotransferase (ALT/SGPT) 45 12-78 U/L Alkaline Phosphatase 139 H 50-136 U/L Total Creatine Kinase 48 21-232 U/L Troponin I High Sensitivity 48 4-75 ng/L B-Type Natriuretic Peptide 625 H 0-100 pg/mL Total Protein 7.7 6.0-8.3 g/dL Albumin 3.6 3.5-5.0 g/dL Coagulation Labs: Test 03/16/24 13:17 Range/Units Prothrombin Time 10.9 9.6-11.6 SEC Prothromb Time International Ratio 0.97 0.85-1.15 Activated Partial Thromboplast Time 27.0 26.3-35.5 SEC Current Medications Medications (Trade) Dose Ordered Sig/Sandeep Route Start Time Stop Time Status Last Admin Dose Admin Enoxaparin Sodium (Lovenox) 90 mg DAILY SQ 03/17/24 09:00 04/16/24 08:59 Furosemide (LASix 20MG VIAL) 20 mg Q12H IV 03/17/24 09:00 04/16/24 08:59 Metoprolol Tartrate (loprESSOR) 25 mg BID PO 03/16/24 21:00 04/15/24 20:59 03/17/24 00:29 25 MG Pantoprazole Sodium (PROTonix 40MG TAB) 40 mg DAILY PO 03/17/24 09:00 04/16/24 08:59 EKG: [ ] Personally interpreted. Atrial fibrillation with RVR at 112,1 mm or less anterior ST depressions, possibly rate related RADIOLOGY: [ Calcified aortic arch, trivial right pleural effusion, mild congestive changes. Reviewed personally] ASSESSMENT: [ Paroxysmal atrial fibrillation with RVR, new onset, currently in sinus Known aortic stenosis Left carotid endarterectomy, approximately 2022 Acute on chronic diastolic CHF] PLAN: [Patient presents with new onset AFib with RVR. He is currently in sinus. He should be on Lovenox b.i.d.. He is on metoprolol. He has known aortic stenosis that has been followed by the [place] in [place]. He has history of left carotid endarterectomy. The patient denies ever seeing a fuel management handler, which unless the culture of the [place] in [place] is markedly different, strains credulity. We will await the formal echocardiogram interpretation. If his EF is preserved, he remains in sinus or rate controlled, and his aortic gradients are acceptable he could potentially be discharged with outpatient follow-up. Would recommend chronic anticoagulation with a NOAC and beta-liam for rate control. ] ASHLEY GREENE PAC Mar 17, 2024 10:41
[2024-03-17] MEDS: furoSEMIDE 20MG VIAL IV SCH (10:52)
[2024-03-17] MEDS: PANTOPrazole 40 MG TAB DR PO SCH (10:53)
[2024-03-17] MEDS: ENOXAPARIN SODIUM 100 MG/1 ML SQ SCH (10:55)
--- NOTE | 2024-03-17 14:05 | NUR ---
DCP: HOME Sw is a Winter [place] from [place], staying at [facility] in for Winter. Pt is a and is seen at [facility] in [place] for medical care and meds. Pt reports he is very active and drives, able to complete ADLS, home management and meal prep on his own. Has no local PCP or pharmacy. Pt denies need for SNF, states he will return to [facility] at [place]. Addendum: 03/17/24 at 1407 by SALLY MCINTYRE SS Amended: Links added.
[2024-03-17 14:17] LABS: BASOPHILS # (AUTO) 0.09 K/uL (0.00-0.20); BASOPHILS % (AUTO) 1.3 % (0.0-5.0); EOSINOPHILS # (AUTO) 0.17 K/uL (0.00-0.70); EOSINOPHILS % (AUTO) 2.4 % (0.0-8.0); HEMATOCRIT 34.2 % (42-54); IMMATURE GRANULOCYTE ABSOLUTE 0.04 K/uL (0-1); LYMPHOCYTES # (AUTO) 1.1 K/uL (1.0-4.8); LYMPHOCYTES % (AUTO) 15.6 % (21.0-51.0); MEAN CORPUSCULAR HEMOGLOBIN 34.3 pg (27.0-33.0); MEAN CORPUSCULAR HGB CONC 32.2 g/dL (32.0-36.0); MEAN CORPUSCULAR VOLUME 106.5 fL (79-99); MONOCYTES # (AUTO) 0.8 K/uL (0.1-1.0); MONOCYTES % (AUTO) 11.2 % (3.0-13.0); NEUTROPHILS # (AUTO) 4.8 K/uL (1.8-7.7); NEUTROPHILS % (AUTO) 68.9 % (40.0-77.0); PLATELET COUNT (AUTO) 167 K/uL (130-400); RED BLOOD CELL COUNT(AUTO) 3.21 MIL/uL (4.50-6.20); RED CELL DISTRIBUTION WIDTH 16.1 % (11.0-15.5); WHITE BLOOD COUNT (AUTO) 6.9 K/uL (4.8-10.8)
[2024-03-17 14:25] LABS: POTASSIUM 4.2 mmol/L (3.5-5.1)
[2024-03-17 14:29] LABS: ALBUMIN 3.5 g/dL (3.5-5.0); BILIRUBIN,TOTAL 0.8 mg/dL (0.2-1.0); TOTAL PROTEIN, SERUM 7.6 g/dL (6.0-8.3)
[2024-03-17 14:40] LABS: B-TYPE NATRIURETIC PEPTIDE 518 pg/mL (0-100)
--- NOTE | 2024-03-17 15:49 | EKG ---
[facility] Test Date: 2024-03-17 Test Time: 15:23:58 Pat Name: TONIA BARBOSA Department: EDHIP Room: ED 03 Gender: M Emergency Medical Service Manager: [id number] : 1940 Requested By: ASHLEY GREENE Order Number: [id number] Reading MD: Rodney Brito Measurements Intervals [place] Rate: 83 P: -24 KS: 101 QRS: -23 QRSD: 106 T: 97 QT: 422 QTc: 495 Interpretive Statements Sinus rhythm Multiple premature complexes, vent & supraven Inferior infarct, old Probable anterior infarct, age indeterminate Compared to ECG 03/16/2024 12:56:52 Myocardial infarct finding now present Atrial fibrillation no longer present Early repolarization no longer present Possible ischemia no longer present Prolonged QT interval no longer present Electronically Signed On 03-17-2024 20:02:54 JUICE BAR TEAM MEMBER by Rodney Brito Please click the below link to view image of tracing.
--- NOTE | 2024-03-17 19:49 | HMCSR ---
APPROVED REPORT EXAM: Two-dimensional and M-mode echocardiogram with Doppler and color Doppler. INDICATION ICD: Atrial Fibrillation 2D Dimensions RVDd4.9 cmLVEF(%)59.5 (>50%)LVED Vol(simp.)172.0 mL IVSd0.8 (0.7-1.1cm)FS(%)32 %LVES Vol(simp.)86.0 mL LVDd6.2 (3.8-5.6cm)LA (2D)5.6 (1.6-4.0cm)LVEF(%, simp.)50 % PWd1.4 (0.7-1.1cm)Ao Root(2D)3.4 (2.0-3.7cm)LA ESV INDEX (4CH)55.40 mL/m2 IVSs1.8 cmLVOT diam2.4 (1.8-2.4cm)LA ESV INDEX (2CH)57.90 mL/m2 LVDs4.2 (2.5-4.0cm)IVC diam2.3 cmLA ESV INDEX (BP)58.90 mL/m2 PWs1.7 cm M-Mode Dimensions EPSS1.0 cm LA (MM)5.3 (1.6-4.0cm) Ao Root(MM)3.9 (2.0-3.7cm) Aortic Valve AoV VTI1.0 mAo Mean GR46.0 mmHgLVOT VTI0.13 m NEETU (VMAX)0.6 cm2Al P1/2T235 msAVA (VTI) 0.6 cm2 Mitral Valve MV E Ymat548.6 cm/sDECEL Wghg949 ms MV A Vmax72.6 cm/sP 1/2 T72 ms E/A ratio2.0MVA (PHT)3.0 cm2 MR Max PG126 mmHg TDI E/E' Laskzi10.3E/E' Xbtuwxf92.2 Medial E' Peak V7.50 cm/sLateral E' Peak V9.50 cm/s Tricuspid Valve TR Vmax3.5 m/s TR Peak GR49.0 mmHg Left Ventricle Left ventricular cavity size is normal. No regional wall motion abnormalities noted. There is normal left ventricular wall thickness. LVEF is 50-55%. Stage II diastolic dysfunction. Right Ventricle The right ventricle is normal size. The right ventricular systolic function is normal. Atria The left atrium is moderately to severely dilated. The right atrium is severely dilated. Aortic Valve The aortic valve is calcified and displays decreased opening. Trace aortic regurgitation. There is se melyssa valvular aortic stenosis. Highest mean aortic valve gradient is 46mmHg. Peak aortic valve gradie nt is 84mmHg. Mitral Valve Mitral valve leaflets open well. Mild mitral annular calcification present. Mitral regurgitation is m ild. There is no mitral valve stenosis. Tricuspid Valve The tricuspid valve is normal in structure and function. There is mild tricuspid valve regurgitation noted. Pulmonic Valve The pulmonary valve is normal in structure and function. There is no pulmonic valvular regurgitation. Great Vessels The aortic root is normal in size. IVC is dilated and collapses <50% with inspiration. Pericardium No pericardial effusion. Conclusion LVEF is 50-55%. Stage II diastolic dysfunction. No regional wall motion abnormalities noted. The left atrium is moderately to severely dilated. The aortic valve is calcified and displays decreased opening. There is severe valvular aortic stenosis. Highest mean aortic valve gradient is 46mmHg. Peak aortic valve gradient is 84mmHg.
[2024-03-17 21:35] LABS: HEMATOCRIT 31.9 % (42-54); MEAN CORPUSCULAR HGB CONC 33.2 g/dL (32.0-36.0); MEAN CORPUSCULAR VOLUME 105.3 fL (79-99); RED BLOOD CELL COUNT(AUTO) 3.03 MIL/uL (4.50-6.20); RED CELL DISTRIBUTION WIDTH 16.2 % (11.0-15.5)
--- NOTE | 2024-03-17 22:06 | NUR ---
PATIENT ARRIVED TO ROOM 302 AT 2136. NO COMPLICATIONS NOTED
[2024-03-18] VITALS (7 sets, daily range): BP systolic 116–155; BP diastolic 64–75; PULSE 60–99; RESP 18–20; TEMP 97.5–98.2; O2SAT 95
[2024-03-18 05:48] LABS: BILIRUBIN,TOTAL 0.8 mg/dL (0.2-1.0); MAGNESIUM 1.9 mg/dL (1.80-2.40); POTASSIUM 3.5 mmol/L (3.5-5.1); TOTAL PROTEIN, SERUM 6.7 g/dL (6.0-8.3)
--- NOTE | 2024-03-18 08:38 | PN ---
[facility] PROGRESS NOTE Date of Service: Mar 18, 2024 Time of Service: 08:31 SUBJECTIVE: [ ] This is a 83-year-old male who is a went to [place] presents in ED with shortness a breath onset for one-week. Severity severe. Aggravated minimal exertion alleviating factors rest. Patient vital signs done showed AFib with RVR heart rate 110 120s 03/17/2024 patient is seen and examined remains in ED holding. Patient is fully awake alert oriented x3 denies any palpitations. Continues with dyspnea with minimal exertion. Echo done. 03/18/24 patient is seen and examined. Account Support Associate's appreciate their input we will wait for their final recommendations for rate control and anticoagulation. Patient reports no active bleeding. Chest pain or shortness for breath We will monitor H&H trending down. REVIEW OF SYSTEMS A 14 point ROS obtained all relevant positives documented otherwise ROS negative PHYSICAL EXAM GENERAL APPEARANCE: The patient is awake, alert, and oriented, in no acute cardiopulmonary distress. NEUROLOGICAL: Cranial nerves II-XII grossly intact. Motor is 5/5 in bilateral upper and lower extremities proximal to distal. No sensory deficits. HEENT: Face is symmetric. Pupils are equal and reactive. Extraocular movements are intact. NECK: Supple. No JVD. No thyromegaly. No submental, submandibular, pre- /postauricular, occipital or supraclavicular lymphadenopathy. CHEST: Normal chest expansion. No Telemetry. LUNGS: Absence of any rales, rhonchi or any wheezing. CARDIOVASCULAR: Regular. S1 and S2 normal. No appreciable rubs, murmurs or gallops. ABDOMEN: Soft, nontender, and nondistended. There is no rebound, voluntary guarding, or rigidity. : Deferred. No Keenan. EXTREMITIES: Non-edematous and not cyanotic. No clubbing. Good capillary refill. SKIN: No skin breakdown. Vital Signs (last 8hr) Date Time Temp Pulse Resp B/P (MAP) Pulse Ox O2 Delivery O2 Flow Rate FiO2 03/18/24 04:00 98.1 81 20 124/73 94 Room Air LABS: Laboratory: Test 03/18/24 05:03 03/17/24 21:30 03/17/24 13:52 03/17/24 06:58 Range/Units Sodium Level 134 L 136-145 mmol/L Potassium Level 3.5 3.5-5.1 mmol/L Chloride Level 99 L 101-111 mmol/L Carbon Dioxide Level 28 21-32 mmol/L Blood Urea Nitrogen 24 H 7-18 mg/dL Creatinine 1.0 0.5-1.3 mg/dL Glomerular Filtration Rate Calc 75 >90 mL/min Random Glucose 110 H 70-105 mg/dL Total Calcium 8.7 8.5-10.1 mg/dL Magnesium Level 1.90 1.80-2.40 mg/dL Total Bilirubin 0.8 0.2-1.0 mg/dL Aspartate Amino Transf (AST/SGOT) 35 10-37 U/L Alanine Aminotransferase (ALT/SGPT) 34 12-78 U/L Alkaline Phosphatase 109 50-136 U/L Total Protein 6.7 6.0-8.3 g/dL Albumin 3.0 L 3.5-5.0 g/dL White Blood Count 7.0 4.8-10.8 K/uL Red Blood Count 3.03 L 4.50-6.20 MIL/uL Hemoglobin 10.6 L 14.0-18.0 g/dL Hematocrit 31.9 L 42-54 % Mean Corpuscular Volume 105.3 H 79-99 fL Mean Corpuscular Hemoglobin 35.0 H 27.0-33.0 pg Mean Corpuscular Hemoglobin Concent 33.2 32.0-36.0 g/dL Red Cell Distribution Width 16.2 H 11.0-15.5 % Platelet Count 143 130-400 K/uL Mean Platelet Volume 10.0 7.5-10.5 fL Nucleated Red Blood Cells 0.0 0.0-0.19 % Immature Granulocyte % (Auto) 0.6 0-1 % Neutrophils (%) (Auto) 68.9 40.0-77.0 % Lymphocytes (%) (Auto) 15.6 L 21.0-51.0 % Monocytes (%) (Auto) 11.2 3.0-13.0 % Eosinophils (%) (Auto) 2.4 0.0-8.0 % Basophils (%) (Auto) 1.3 0.0-5.0 % Neutrophils # (Auto) 4.8 1.8-7.7 K/uL Lymphocytes # (Auto) 1.1 1.0-4.8 K/uL Monocytes # (Auto) 0.8 0.1-1.0 K/uL Eosinophils # (Auto) 0.17 0.00-0.70 K/uL Basophils # (Auto) 0.09 0.00-0.20 K/uL Absolute Immature Granulocyte (auto 0.04 0-1 K/uL B-Type Natriuretic Peptide 518 H 0-100 pg/mL Troponin I High Sensitivity 50 4-75 ng/L Triglycerides Level 143 30-200 mg/dL Cholesterol Level 156 <200 mg/dL LDL Cholesterol 85 0-99 mg/dL HDL Cholesterol 58 29-71 mg/dL Thyroid Stimulating Hormone (TSH) 2.70 0.36-3.74 uIU/mL Test 03/16/24 14:15 03/16/24 13:17 Range/Units Urine Color YELLOW YELLOW Urine Appearance CLEAR CLEAR Urine pH 6.0 5.0-8.0 Urine Specific [place] 1.036 H 1.001-1.031 Urine Protein 30 H NEGATIVE mg/dL Urine Glucose (UA) NEGATIVE NEGATIVE mg/dL Urine Ketones NEGATIVE NEGATIVE mg/dL Urine Occult Blood NEGATIVE NEGATIVE Urine Nitrate NEGATIVE NEGATIVE Urine Bilirubin NEGATIVE NEGATIVE mg/dL Urine Urobilinogen 2.0 H 0.2-1.0 mg/dL Urine Leukocyte Esterase NEGATIVE NEGATIVE Sherwin/uL Urine RBC 2-5 H 0-1 /HPF Urine WBC 0-1 0-1 /HPF Urine Bacteria None None Seen /HPF Influenza Type A Antigen Negative For Type A NEGATIVE Influenza Type B Antigen Negative For Type B NEGATIVE Red Blood Cell Morphology See comments Prothrombin Time 10.9 9.6-11.6 SEC Prothromb Time International Ratio 0.97 0.85-1.15 Activated Partial Thromboplast Time 27.0 26.3-35.5 SEC Lactic Acid Level 2.0 0.8-2.5 mmol/L Iron Level 95 65-175 mcg/dL Total Iron Binding Capacity 410 250-450 mcg/dL Percent Iron Saturation 23.1 L 30-44 % Direct Bilirubin 0.3 0.0-0.3 mg/dL Total Creatine Kinase 48 21-232 U/L Current Medications Medications (Trade) Dose Ordered Sig/Sandeep Route PRN Reason Start Time Stop Time Status Last Admin Dose Admin Acetaminophen (TYLenol 325MG TAB) 650 mg Q4H PRN PO TEMPERATURE GREATER THAN 101.5 03/16/24 17:30 04/15/24 17:29 Enoxaparin Sodium (Lovenox) 90 mg BID SQ 03/17/24 10:30 04/16/24 08:59 03/17/24 20:10 90 MG Enoxaparin Sodium (Lovenox) 90 mg DAILY SQ 03/17/24 09:00 03/17/24 10:22 DC Furosemide (LASix 20MG VIAL) 20 mg Q12H IV 03/17/24 09:00 04/16/24 08:59 03/17/24 20:09 20 MG Magnesium Sulfate 50 ml @ 0 mls/hr PROTOCOL PRN IV low mag level 03/16/24 17:30 04/15/24 17:29 Metoprolol Tartrate (loprESSOR) 25 mg BID PO 03/16/24 21:00 04/15/24 20:59 03/17/24 20:10 25 MG Ondansetron HCl (zoFRAN 4MG INJ) 4 mg Q6H PRN IVP NAUSEA/VOMITING 03/16/24 17:30 04/15/24 17:29 Pantoprazole Sodium (PROTonix 40MG TAB) 40 mg DAILY PO 03/17/24 09:00 04/16/24 08:59 03/17/24 10:53 40 MG Potassium Chloride 100 ml @ 100 mls/hr AD PRN IV POTASSIUM PROTOCOL 03/16/24 17:30 04/15/24 17:29 Potassium Chloride (K-Dur/Klor-Con 20meq) 20 meq AD PRN PO POTASSIUM PROTOCOL 03/16/24 17:30 04/15/24 17:29 Potassium Chloride (KCl 10% Elixir 20meq/15ml) 20 meq AD PRN PO POTASSIUM PROTOCOL 03/16/24 17:30 04/15/24 17:29 DIAGNOSTICS / RADIOLOGY: [ ] ASSESSMENT: Acute respiratory distress with minimal exertion POA Acute on chronic heart failure with EF 50-55% POA AFib RVR POA Fluid overload suspecting heart failure POA Hyponatremia Chronic problems Hypertension, hyperlipidemia, history of anemia GI ulcers. Hx: aortic stenosis PLAN: Admit: Medical-surgical with tele condition: Guarded Status: Full code IVF: [employer] psych tech: Antibiotics: none Test: Echo note with EF Medications: [id number] mg b.i.d., continues with Lasix 20 mg IV b.i.d. Lovenox1 milligram/kg b.i.d. change to Eliquis we will monitor H&H trend. H&H stable reports no active bleeding. Labs cbc, cmp, mag+ Replace electrolytes as needed as per protocol to keep potassium above 4.0 magnesium 2.0. Fall precautions Fluid restriction 1.5 L daily BNP in a.m. We will monitor H&H trends: If hemoglobin drops we will discontinue Lovenox. for acute bleeding PRN: MEDICATIONS Tylenol 650 mg po every 4 hrs for fever Zofran 4 mg IV every 6 hrs for n/v Hydralazine 5 mg IV every 4 hrs systolic pressure > 160 bowel regiment: lactulose 20 gm PO BID PRN constipation Pain management: Tylenol 650 mg Supportive measures: DVT ppx, GI ppx all questions answered Supervising MD: Dr. Dunn c/d This document was generated in part using voice recognition software, occasional wrong word or sound alike substitutions may have occurred due to the inherent limitations of voice recognition software. Read the chart carefully and recognize using context, where the substitutions have occurred. Although every effort was made to edit the content, parole officer and typing errors may occur ATTESTATION BY PHYSICIAN I have seen and examined the patient. I reviewed the documentation, medical decision making, and treatment plan as noted by the mid-level provider above. I agree with the findings and plan of care. ELVIA DUNN MD, ELIZABETH NP Mar 18, 2024 08:38
--- NOTE | 2024-03-18 09:46 | PN ---
[facility] Cardiology Progress Note PROBLEM LIST: Paroxysmal atrial fibrillation with RVR, new onset, currently in sinus Chads 2 Vasc score of at least 3 Known aortic stenosis 2D echo EF 50-55%, grade 2 diastolic dysfunction, severe with peak and mean of 84 and 46 mm Hg Left carotid endarterectomy, approximately 2022 Acute on chronic diastolic CHF INTERVAL HISTORY: [The patient feels well today, almost back to normal. Shortness of breath has almost resolved. He walked around the halls without any difficulty. No dizziness, chest discomfort, edema. He remains in sinus. No reports of fever, bleeding.] PHYSICAL EXAMINATION: Vital Signs (Last 48hrs) Date Time Temp Pulse Resp B/P (MAP) Pulse Ox O2 Delivery O2 Flow Rate FiO2 03/18/24 08:00 98.2 99 18 155/68 95 Room Air 03/18/24 04:00 98.1 81 20 124/73 94 Room Air 03/18/24 00:00 97.5 90 20 123/74 92 Room Air 03/17/24 22:00 97 Room Air* 0 03/17/24 21:36 97.9 95 20 138/79 96 Room Air 03/17/24 20:00 98.6 89 18 119/71 96 Room Air 0.0 03/17/24 19:30 97 Room Air* 0 03/17/24 16:00 20 118/78 96 Room Air 03/17/24 12:59 99 Room Air* 0 03/17/24 12:00 98.1 18 146/86 99 Room Air 03/17/24 08:00 98.1 66 18 122/80 99 Room Air 03/17/24 04:11 98.8 76 20 110/77 99 Room Air* 0 03/17/24 01:38 98.2 76 16 122/64 98 Room Air* 0 03/17/24 00:30 98.2 72 16 124/61 98 Room Air* 0 03/16/24 19:52 89 16 120/72 98 Room Air* 0 03/16/24 18:38 102 19 137/63 96 Room Air* 0 03/16/24 18:23 102 137/63 03/16/24 14:10 98.1 104 20 127/76 96 Room Air 0 General: Resting comfortably, no acute distress. HEENT: Atraumatic. Hearing is intact. No facial asymmetry, nasal discharge, icterus or lid lag. Cardiovascular: Rhythm and rate regular. 3/6 systolic murmur, no edema. Respiratory: Lungs clear to the bases. No retractions, wheezes or rhonchi. Gastrointestinal: Benign, soft, nontender, nondistended. Extremities: No amputations. Range of motion is grossly normal. Neurology/Psychiatry: No tremors. Speech is clear. Alert and oriented x 3. Cooperative and pleasant. LABORATORY DATA: [ Laboratory Tests Test 03/17/24 13:52 03/17/24 21:30 03/18/24 05:03 White Blood Count 6.9 K/uL (4.8-10.8) 7.0 K/uL (4.8-10.8) Red Blood Count 3.21 MIL/uL (4.50-6.20) L 3.03 MIL/uL (4.50-6.20) L Hemoglobin 11.0 g/dL (14.0-18.0) L 10.6 g/dL (14.0-18.0) L Hematocrit 34.2 % (42-54) L 31.9 % (42-54) L Mean Corpuscular Volume 106.5 fL (79-99) H 105.3 fL (79-99) H Mean Corpuscular Hemoglobin 34.3 pg (27.0-33.0) H 35.0 pg (27.0-33.0) H Mean Corpuscular Hemoglobin Concent 32.2 g/dL (32.0-36.0) 33.2 g/dL (32.0-36.0) Red Cell Distribution Width 16.1 % (11.0-15.5) H 16.2 % (11.0-15.5) H Platelet Count 167 K/uL (130-400) 143 K/uL (130-400) Mean Platelet Volume 10.3 fL (7.5-10.5) 10.0 fL (7.5-10.5) Immature Granulocyte % (Auto) 0.6 % (0-1) Neutrophils (%) (Auto) 68.9 % (40.0-77.0) Lymphocytes (%) (Auto) 15.6 % (21.0-51.0) L Monocytes (%) (Auto) 11.2 % (3.0-13.0) Eosinophils (%) (Auto) 2.4 % (0.0-8.0) Basophils (%) (Auto) 1.3 % (0.0-5.0) Neutrophils # (Auto) 4.8 K/uL (1.8-7.7) Lymphocytes # (Auto) 1.1 K/uL (1.0-4.8) Monocytes # (Auto) 0.8 K/uL (0.1-1.0) Eosinophils # (Auto) 0.17 K/uL (0.00-0.70) Basophils # (Auto) 0.09 K/uL (0.00-0.20) Absolute Immature Granulocyte (auto 0.04 K/uL (0-1) Nucleated Red Blood Cells 0.0 % (0.0-0.19) 0.0 % (0.0-0.19) Sodium Level 131 mmol/L (136-145) L 134 mmol/L (136-145) L Potassium Level 4.2 mmol/L (3.5-5.1) 3.5 mmol/L (3.5-5.1) Chloride Level 97 mmol/L (101-111) L 99 mmol/L (101-111) L Carbon Dioxide Level 29 mmol/L (21-32) 28 mmol/L (21-32) Blood Urea Nitrogen 21 mg/dL (7-18) H 24 mg/dL (7-18) H Creatinine 1.0 mg/dL (0.5-1.3) 1.0 mg/dL (0.5-1.3) Glomerular Filtration Rate Calc 75 mL/min (>90) 75 mL/min (>90) Random Glucose 132 mg/dL (70-105) H 110 mg/dL (70-105) H Total Calcium 9.0 mg/dL (8.5-10.1) 8.7 mg/dL (8.5-10.1) Magnesium Level 2.00 mg/dL (1.80-2.40) 1.90 mg/dL (1.80-2.40) Total Bilirubin 0.8 mg/dL (0.2-1.0) 0.8 mg/dL (0.2-1.0) Aspartate Amino Transf (AST/SGOT) 36 U/L (10-37) 35 U/L (10-37) Alanine Aminotransferase (ALT/SGPT) 39 U/L (12-78) 34 U/L (12-78) Alkaline Phosphatase 132 U/L (50-136) 109 U/L (50-136) B-Type Natriuretic Peptide 518 pg/mL (0-100) H Total Protein 7.6 g/dL (6.0-8.3) 6.7 g/dL (6.0-8.3) Albumin 3.5 g/dL (3.5-5.0) 3.0 g/dL (3.5-5.0) L ] RADIOLOGY: [2D echo reveals preserved EF, severe with peak and mean of 84 and 46 mm Hg] PLAN: [The patient has been in sinus over the evening. He is tolerating his Lovenox. Echo revealed severe . Did discuss further treatment options with him, including proceeding with workup here. Patient rather have this done back home in [place] where he can be near family. He can be transitioned to Eliquis 5 mg b.i.d.. Continue the metoprolol 25 mg b.i.d.. We will see him in the office in 2-3 weeks.] ASHLEY GREENE PAC Mar 18, 2024 09:46
[2024-03-18] MEDS: PoTASSium chloRIDE 20MEQ ER 20 MEQ ERTAB PO ONE ×2 (12:30→14:55)
[2024-03-18 12:37] LABS: HEMATOCRIT 31.3 % (42-54); MEAN CORPUSCULAR HEMOGLOBIN 35.1 pg (27.0-33.0); MEAN CORPUSCULAR HGB CONC 31.9 g/dL (32.0-36.0); MEAN CORPUSCULAR VOLUME 109.8 fL (79-99); RED BLOOD CELL COUNT(AUTO) 2.85 MIL/uL (4.50-6.20); RED CELL DISTRIBUTION WIDTH 16.2 % (11.0-15.5); WHITE BLOOD COUNT (AUTO) 7.1 K/uL (4.8-10.8)
[2024-03-18] MEDS: APIXaban 5 MG TABLET PO SCH (21:26)
[2024-03-19] VITALS: BP 131/64; PULSE 81; RESP 20; TEMP 97.7
[2024-03-19 04:00] VITALS: BP 122/70; PULSE 89; RESP 20; TEMP 98
[2024-03-19 04:25] LABS: HEMATOCRIT 33.5 % (42-54); MEAN CORPUSCULAR HEMOGLOBIN 35.3 pg (27.0-33.0); MEAN CORPUSCULAR HGB CONC 32.5 g/dL (32.0-36.0); MEAN CORPUSCULAR VOLUME 108.4 fL (79-99); RED BLOOD CELL COUNT(AUTO) 3.09 MIL/uL (4.50-6.20); RED CELL DISTRIBUTION WIDTH 16.2 % (11.0-15.5); WHITE BLOOD COUNT (AUTO) 8.2 K/uL (4.8-10.8)
[2024-03-19 04:47] LABS: ALBUMIN 3.2 g/dL (3.5-5.0); BILIRUBIN,TOTAL 0.8 mg/dL (0.2-1.0); MAGNESIUM 2.1 mg/dL (1.80-2.40); POTASSIUM 3.9 mmol/L (3.5-5.1); TOTAL PROTEIN, SERUM 7.3 g/dL (6.0-8.3)
[2024-03-19 08:00] VITALS: BP 114/63; PULSE 94; RESP 18; TEMP 98.3; O2SAT 95
[2024-03-19] MEDS ORDERED: METO50TA18 PO (08:38)
[2024-03-19] MEDS ORDERED: APIX5TAB PO (08:38)
[2024-03-19] MEDS ORDERED: FAMO20TA8 PO (08:38)
--- NOTE | 2024-03-19 08:44 | DS ---
Discharge Summary Hospital Course Summary: This is a 83-year-old male who is a went to [place] presents in ED with shortness a breath onset for one-week. Severity severe. Aggravated minimal exertion alleviating factors rest. Patient vital signs done showed AFib with RVR heart rate 110 120s 03/17/2024 patient is seen and examined remains in ED holding. Patient is fully awake alert oriented x3 denies any palpitations. Continues with dyspnea with minimal exertion. Echo done. 03/18/24 patient is seen and examined. Casino Cashier's appreciate their input we will wait for their final recommendations for rate control and anticoagulation. Patient reports no active bleeding. Chest pain or shortness for breath We will monitor H&H trending down. 03/19/24 patient is seen and examined patient denies any bleeding chest pain or shortness a breath. Patient is clinically stable for discharge. Latest hemoglobin 10.9 patient to follow-up with smoking pipe mounter's 2-3 weeks patient was started on metoprolol [id number] mg p.o. for rate control. All questions addressed Procedure(s): REASON: afib rvr ORDERING PHYSICIAN: TASIA SANDOVAL NP PROCEDURE: ECHO [facility] - ECHO 2-D COMPLETE APPROVED REPORT EXAM: Two-dimensional and M-mode echocardiogram with Doppler and color Doppler. INDICATION ICD: Atrial Fibrillation 2D Dimensions RVDd 4.9 cm LVEF(%) 59.5 (>50%) LVED Vol(simp.) 172.0 mL IVSd 0.8 (0.7-1.1cm) FS(%) 32 % LVES Vol(simp.) 86.0 mL LVDd 6.2 (3.8-5.6cm) LA (2D) 5.6 (1.6-4.0cm) LVEF(%, simp.) 50 % PWd 1.4 (0.7-1.1cm) Ao Root(2D) 3.4 (2.0-3.7cm) LA ESV INDEX (4CH) 55.40 mL/m2 IVSs 1.8 cm LVOT diam 2.4 (1.8-2.4cm) LA ESV INDEX (2CH) 57.90 mL/m2 LVDs 4.2 (2.5-4.0cm) IVC diam 2.3 cm LA ESV INDEX (BP) 58.90 mL/m2 PWs 1.7 cm M-Mode Dimensions EPSS 1.0 cm LA (MM) 5.3 (1.6-4.0cm) Ao Root(MM) 3.9 (2.0-3.7cm) Aortic Valve AoV VTI 1.0 m Ao Mean GR 46.0 mmHg LVOT VTI 0.13 m NEETU (VMAX) 0.6 cm2 Al P1/2T 235 ms NEETU (VTI) 0.6 cm2 Mitral Valve MV E Vmax 144.6 cm/s DECEL Time 151 ms MV A Vmax 72.6 cm/s P 1/2 T 72 ms E/A ratio 2.0 MVA (PHT) 3.0 cm2 MR Max PG 126 mmHg TDI E/E' Medial 19.3 E/E' Lateral 15.2 Medial E' Peak V 7.50 cm/s Lateral E' Peak V 9.50 cm/s Tricuspid Valve TR Vmax 3.5 m/s TR Peak GR 49.0 mmHg Left Ventricle Left ventricular cavity size is normal. No regional wall motion abnormalities noted. There is normal left ventricular wall thickness. LVEF is 50-55%. Stage II diastolic dysfunction. Right Ventricle The right ventricle is normal size. The right ventricular systolic function is normal. Atria The left atrium is moderately to severely dilated. The right atrium is severely dilated. Aortic Valve The aortic valve is calcified and displays decreased opening. Trace aortic regurgitation. There is severe valvular aortic stenosis. Highest mean aortic valve gradient is 46mmHg. Peak aortic valve gradient is 84mmHg. Mitral Valve Mitral valve leaflets open well. Mild mitral annular calcification present. Mitral regurgitation is mild. There is no mitral valve stenosis. Tricuspid Valve The tricuspid valve is normal in structure and function. There is mild tricuspid valve regurgitation noted. Pulmonic Valve The pulmonary valve is normal in structure and function. There is no pulmonic valvular regurgitation. Great Vessels The aortic root is normal in size. IVC is dilated and collapses <50% with inspiration. Pericardium No pericardial effusion. Conclusion LVEF is 50-55%. Stage II diastolic dysfunction. No regional wall motion abnormalities noted. The left atrium is moderately to severely dilated. The aortic valve is calcified and displays decreased opening. There is severe valvular aortic stenosis. Highest mean aortic valve gradient is 46mmHg. Peak aortic valve gradient is 84mmHg. Assessment/Plan: Discharged Dx's; Acute respiratory distress with minimal exertion POA Acute on chronic heart failure with EF 50-55% POA AFib RVR POA Fluid overload suspecting heart failure POA Hyponatremia Chronic problems Hypertension, hyperlipidemia, history of anemia GI ulcers. Hx: aortic stenosis PLAN: ADMISSION DATE: 03/16/24 DISCHARGE DATE: 03/19/2024 DISPOSITION: home CONDITION: stable DRAFTER ENGINEERING(S): smoking pipe mounter FOLLOW UP APPOINTMENT(S): [facility] 2-3 days, [facility]: 2-3 wk patient will need a fish receiver's referral. We will be arranged by [facility]. PROCEDURES: None IMAGING (S) report attached to summary : Echo MICROBIOLOGY: report attached to summary; none ACTIVITY: ab jose HOME MEDICATIONS CHANGES ON HOME MEDICATIONS NEW MEDICATIONS Eliquis 5 mg p.o. b.i.d. and metoprolol b.i.d. 2Lasix 20 mg daily TEACHING: fall precaution side effect and adverse reaction on Eliquis fluid restriction 1.5 L daily. Emergency instructions: The patient was instructed to present to the nearest Emergency Department or call 911 should their symptoms return or worsen. New Medications: Apixaban (Eliquis) 5 Mg Tablet 1 TAB PO BID for 30 Days, #60 TAB 0 Refills Famotidine (Famotidine) 20 Mg Tablet 20 MG PO DAILY for 30 Days, #30 TAB Metoprolol Tartrate (Metoprolol Tartrate) 50 Mg Tablet 25 MG PO BID for 30 Days, #60 TAB Time spent arranging discharge: 31-60 minutes ATTESTATION BY PHYSICIAN I have seen and examined the patient. I reviewed the documentation, medical decision making, and treatment plan as noted by the mid-level provider above. I agree with the findings and plan of care. ELVIA DUNN MD, ELIZABETH NP Mar 19, 2024 08:44
--- NOTE | 2024-03-19 08:58 | PN ---
PROGRESS NOTE PROBLEM LIST: Paroxysmal atrial fibrillation with RVR, new onset, currently in sinus Chads 2 Vasc score of at least 3 Known aortic stenosis 2D echo EF 50-55%, grade 2 diastolic dysfunction, severe with peak and mean of 84 and 46 mm Hg Left carotid endarterectomy, approximately 2022 Acute on chronic diastolic CHF INTERIM HISTORY OF PRESENT ILLNESS: Patient currently is without complaints and is ready for dismissal. Patient decided he would like to get his aortic stenosis worked up here in [facility]. All questions have been answered. Patient has a appointment with me in 1-2 weeks. REVIEW OF SYSTEMS: No fever, headache, chest pain, abdominal pain, nausea, vomiting, or diarrhea. VITAL SIGNS Vital Signs Date Time Temp Pulse Resp B/P (MAP) Pulse Ox O2 Delivery O2 Flow Rate FiO2 03/19/24 08:00 98.2 94 18 114/63 96 Room Air 21 03/18/24 20:00 0 Laboratory Tests 03/19/24 04:00 LABS/MEDS Laboratory Tests Test 03/19/24 04:00 White Blood Count 8.2 K/uL (4.8-10.8) Red Blood Count 3.09 MIL/uL (4.50-6.20) L Hemoglobin 10.9 g/dL (14.0-18.0) L Hematocrit 33.5 % (42-54) L Mean Corpuscular Volume 108.4 fL (79-99) H Mean Corpuscular Hemoglobin 35.3 pg (27.0-33.0) H Mean Corpuscular Hemoglobin Concent 32.5 g/dL (32.0-36.0) Red Cell Distribution Width 16.2 % (11.0-15.5) H Platelet Count 156 K/uL (130-400) Mean Platelet Volume 10.4 fL (7.5-10.5) Nucleated Red Blood Cells 0.0 % (0.0-0.19) Sodium Level 135 mmol/L (136-145) L Potassium Level 3.9 mmol/L (3.5-5.1) Chloride Level 99 mmol/L (101-111) L Carbon Dioxide Level 27 mmol/L (21-32) Blood Urea Nitrogen 26 mg/dL (7-18) H Creatinine 1.0 mg/dL (0.5-1.3) Glomerular Filtration Rate Calc 75 mL/min (>90) Random Glucose 118 mg/dL (70-105) H Total Calcium 8.8 mg/dL (8.5-10.1) Magnesium Level 2.10 mg/dL (1.80-2.40) Total Bilirubin 0.8 mg/dL (0.2-1.0) Aspartate Amino Transf (AST/SGOT) 35 U/L (10-37) Alanine Aminotransferase (ALT/SGPT) 36 U/L (12-78) Alkaline Phosphatase 118 U/L (50-136) Total Protein 7.3 g/dL (6.0-8.3) Albumin 3.2 g/dL (3.5-5.0) L Current Medications Metoprolol Tartrate 5 mg ONCE ONCE IV Last administered on 03/16/24at 18:23; Start 03/16/24 at 14:30; Stop 03/16/24 at 14:31; Status DC Metoprolol Tartrate 25 mg BID PO Last administered on 03/19/24at 08:30; Start 03/16/24 at 21:00; Stop 04/15/24 at 20:59 Pantoprazole Sodium 40 mg DAILY PO Last administered on 03/19/24at 08:30; Start 03/17/24 at 09:00; Stop 04/16/24 at 08:59 Pantoprazole Sodium 40 mg ONCE ONCE PO Last administered on 03/16/24at 18:07; Start 03/16/24 at 17:30; Stop 03/16/24 at 17:31; Status DC Furosemide 40 mg ONCE ONCE IV Last administered on 03/16/24at 19:52; Start 03/16/24 at 17:30; Stop 03/16/24 at 17:31; Status DC Furosemide 20 mg Q12H IV Last administered on 03/17/24at 20:09; Start 03/17/24 at 09:00; Stop 03/18/24 at 09:48; Status DC Acetaminophen 650 mg Q4H PRN PO; Start 03/16/24 at 17:30; Stop 04/15/24 at 17:29 Ondansetron HCl 4 mg Q6H PRN IVP; Start 03/16/24 at 17:30; Stop 04/15/24 at 17:29 Magnesium Sulfate 50 ml @ 0 mls/hr PROTOCOL PRN IV; Start 03/16/24 at 17:30; Stop 04/15/24 at 17:29 Potassium Chloride 100 ml @ 100 mls/hr AD PRN IV; Start 03/16/24 at 17:30; Stop 04/15/24 at 17:29 Potassium Chloride 20 meq AD PRN PO; Start 03/16/24 at 17:30; Stop 04/15/24 at 17:29 Potassium Chloride 20 meq AD PRN PO; Start 03/16/24 at 17:30; Stop 04/15/24 at 17:29 Enoxaparin Sodium 90 mg DAILY SQ; Start 03/17/24 at 09:00; Stop 03/17/24 at 10:22; Status DC Enoxaparin Sodium 90 mg ONCE ONCE SQ Last administered on 03/16/24at 18:07; Start 03/16/24 at 17:30; Stop 03/16/24 at 17:31; Status DC Enoxaparin Sodium 90 mg BID SQ Last administered on 03/17/24at 20:10; Start 03/17/24 at 10:30; Stop 03/18/24 at 09:48; Status DC Apixaban 5 mg BID PO Last administered on 03/19/24at 08:30; Start 03/18/24 at 21:00; Stop 04/17/24 at 20:59 Potassium Chloride 40 meq ONCE ONCE PO; Start 03/18/24 at 12:30; Stop 03/18/24 at 12:31; Status DC Potassium Chloride 40 meq ONCE ONCE PO Last administered on 03/18/24at 14:55; Start 03/18/24 at 15:00; Stop 03/18/24 at 15:01; Status DC PHYSICAL EXAMINATION: GENERAL: No acute distress. HEENT: Normocephalic, atraumatic. CARDIAC: Positive S1 and S2. Murmurs unchanged LUNGS: Clear to auscultation bilaterally. ABDOMEN: Bowel sounds present, soft, nontender. EXTREMITIES: No edema bilaterally. NEUROLOGIC: Cranial nerves 2-12 grossly intact. PSYCHIATRIC: Calm. TELEMETRY: Sinus rhythm no recurrent AFib ASSESSMENT: Paroxysmal atrial fibrillation with RVR, new onset, currently in sinus Chads 2 Vasc score of at least 3 Known aortic stenosis 2D echo EF 50-55%, grade 2 diastolic dysfunction, severe with peak and mean of 84 and 46 mm Hg Left carotid endarterectomy, approximately 2022 Acute on chronic diastolic CHF PLAN: Follow up with me in the office in 1-2 weeks. Workup for possible aortic valve replacement will include coronary angiography. This has been discussed with the patient and he is interested. All questions have been answered. Patient can be dismissed home. DAKOTA NAPOLES MD Mar 19, 2024 08:58
[2024-03-19 12:00] VITALS: BP 149/82; PULSE 78; RESP 18; TEMP 98.5
[2024-03-19] MEDS ORDERED: FURO20TA6 PO (12:14)
[2024-03-19] MEDS: furoSEMIDE 40 MG TABLET PO ONE (12:24)
== END 2024-03-19 13:45 | disposition home or self-care (01) | DRG 291 ==
LOC: EDH 12:28 → EDHIP 16:38 → 3AH 03-17 21:04
PROVIDERS: ADMIT Internal Medicine; ATTEND Internal Medicine
DX: I11.0 Hypertensive heart disease with heart failure (principal); I50.33 Acute on chronic diastolic (congestive) heart failure; E87.1 Hypo-osmolality and hyponatremia; I48.0 Paroxysmal atrial fibrillation; R06.03 Acute respiratory distress; E78.5 Hyperlipidemia, unspecified; Z96.649 Presence of unspecified artificial hip joint; I25.10 Atherosclerotic heart disease of native coronary artery without angina pectoris; Z87.11 Personal history of peptic ulcer disease; Z87.891 Personal history of nicotine dependence; Z79.899 Other long term (current) drug therapy; I35.0 Nonrheumatic aortic (valve) stenosis
CPT/HCPCS: 36415; 71045; 80048; 80053; 80061; 80076; 81001; 82550; 83540; 83550; 83605; 83735; 83880; 84443; 84484; 85025; 85027; 85610; 85730; 87040; 87804; 93005; 93306; 99285; G0378; J1650; J1940; J3490

== ENCOUNTER 2024-04-07 07:55 | Day surgery (SDC) | payer OTHER ==
[2024-04-06 10:56] VITALS: BP 90/46; PULSE 54; RESP 14; TEMP 98
[2024-04-06 11:12] LABS: BASOPHILS # (AUTO) 0.04 K/uL (0.00-0.20); BASOPHILS % (AUTO) 0.5 % (0.0-5.0); EOSINOPHILS # (AUTO) 0.04 K/uL (0.00-0.70); EOSINOPHILS % (AUTO) 0.5 % (0.0-8.0); HEMATOCRIT 35.8 % (42-54); IMMATURE GRANULOCYTE ABSOLUTE 0.05 K/uL (0-1); LYMPHOCYTES % (AUTO) 11.9 % (21.0-51.0); MEAN CORPUSCULAR HEMOGLOBIN 33.2 pg (27.0-33.0); MEAN CORPUSCULAR HGB CONC 31.6 g/dL (32.0-36.0); MEAN CORPUSCULAR VOLUME 105.3 fL (79-99); MONOCYTES # (AUTO) 1.1 K/uL (0.1-1.0); MONOCYTES % (AUTO) 12.3 % (3.0-13.0); NEUTROPHILS # (AUTO) 6.4 K/uL (1.8-7.7); NEUTROPHILS % (AUTO) 74.2 % (40.0-77.0); PLATELET COUNT (AUTO) 132 K/uL (130-400); RED CELL DISTRIBUTION WIDTH 15.2 % (11.0-15.5); WHITE BLOOD COUNT (AUTO) 8.6 K/uL (4.8-10.8)
[2024-04-06 11:23] LABS: ALBUMIN 3.2 g/dL (3.5-5.0); BILIRUBIN,TOTAL 0.8 mg/dL (0.2-1.0); CREATININE 1.1 mg/dL (0.5-1.3); POTASSIUM 3.4 mmol/L (3.5-5.1); TOTAL PROTEIN, SERUM 6.8 g/dL (6.0-8.3)
[2024-04-06 11:58] LABS: INR 1.18 (0.85-1.15)
[2024-04-06 11:59] LABS: PARTIAL THROMBOPLASTIN TIME 34.7 SEC (26.3-35.5)
--- NOTE | 2024-04-06 15:53 | NUR ---
RE: COUGH REPORTED TO MAX GUAJARDO THAT PATIENT CAME IN TO PREOP TODAY WITH COUGH/CONGESTION/PHLEGM AND O2 SAT 92% ON ROOM AIR. RECEIVED ORDERS FOR CXR IN AM PRIOR TO PROCEDURE.
[~2024-04-07] VITALS: Ht 175.3 cm; Wt 100.9 kg
[~2024-04-07 07:55] MED LIST: AMIT10TA6 PO; APIX5TAB PO; FURO20TA4 PO; LOSA25TA41 PO; LOVA20TA3 PO; METO25TA6 PO; OMEP40CA21 PO; SERT-438 PO; SERT-439 PO
--- NOTE | 2024-04-07 08:36 | NUR ---
DR. NAPOLES WAS NOTIFIED OF PATIENTS CURRENT EKG BEING NSR. PT WAS ASKED IF HE IS TAKING AMIODARONE, ACCORDING TO THE PT HE IS, ACCORDING TO PATIENTS [facility] RECORDS NO AMIODARONE IS BEING TAKEN. PER H&P PT IS TAKING AMIODARONE. PT WAS DISCHARGED HOME WITH A FOLLOW UP APPOINTMENT IN [address] NAPOLES
--- NOTE | 2024-04-07 10:33 | EKG ---
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
--- NOTE | 2024-04-12 14:07 | NUR ---
clarification: SEJAL & Cardioversion cancelled for 04/07/24. Patient in Sinus rhythm and questionable compliance with antiarrhythmic
== END 2024-04-07 09:10 | disposition home or self-care (01) ==
LOC: DAH 07:55 → EDSTATUS 11:00
PROVIDERS: ATTEND Internal Medicine Cardiovascular Disease
DX: I48.0 Paroxysmal atrial fibrillation (principal); I77.9 Disorder of arteries and arterioles, unspecified; I50.31 Acute diastolic (congestive) heart failure; I35.0 Nonrheumatic aortic (valve) stenosis; Z87.891 Personal history of nicotine dependence; Z79.899 Other long term (current) drug therapy; Z53.8 Procedure and treatment not carried out for other reasons
CPT/HCPCS: 36415; 80053; 85025; 85610; 85730; 93005

== ENCOUNTER → 2024-05-25 | Outpatient (CLI) | payer OTHER ==
[~2024-05-25] VITALS: Ht 175.3 cm; Wt 90.3 kg
[~2024-05-25] MED LIST changes: +AMIO200T68 PO; +FE F1CAP33 PO; +FURO40TA5 PO; +LOVA40TA2 PO; +METO25 PO; +METO50TA18 PO; +PANTOPrazole 40 MG/VIAL IVP ONE; +PANTOPrazole 40 MG/VIAL IVP SCH; +POTA-202 PO; +acetaMINOPHEN 325 MG TAB PO PRN; +iron PO; +metoPROLOL tartRATE 1 MG/ML 5ML VIAL IV PRN; +ondanSETRON 4MG INJ IVP PRN
[2024-05-25 09:30] LABS: BASOPHILS # (AUTO) 0.09 K/uL (0.00-0.20); BASOPHILS % (AUTO) 1.1 % (0.0-5.0); EOSINOPHILS # (AUTO) 0.11 K/uL (0.00-0.70); EOSINOPHILS % (AUTO) 1.3 % (0.0-8.0); HEMATOCRIT 25.9 % (42-54); IMMATURE GRANULOCYTE ABSOLUTE 0.04 K/uL (0-1); LYMPHOCYTES # (AUTO) 1.3 K/uL (1.0-4.8); MEAN CORPUSCULAR HEMOGLOBIN 28.2 pg (27.0-33.0); MEAN CORPUSCULAR HGB CONC 27.4 g/dL (32.0-36.0); MEAN CORPUSCULAR VOLUME 102.8 fL (79-99); MONOCYTES % (AUTO) 11.7 % (3.0-13.0); NEUTROPHILS % (AUTO) 70.4 % (40.0-77.0); NUCLEATED RED BLOOD CELLS 0.4 % (0.0-0.19); PLATELET COUNT (AUTO) 201 K/uL (130-400); RED BLOOD CELL COUNT(AUTO) 2.52 MIL/uL (4.50-6.20); RED CELL DISTRIBUTION WIDTH 16.4 % (11.0-15.5); WHITE BLOOD COUNT (AUTO) 8.6 K/uL (4.8-10.8)
[2024-05-25 09:37] LABS: POTASSIUM 3.5 mmol/L (3.5-5.1)
[2024-05-25 09:40] LABS: INR 1.13 (0.85-1.15); PROTHROMBIN TIME 11.8 SEC (9.6-11.6)
[2024-05-25 09:41] LABS: PARTIAL THROMBOPLASTIN TIME 29.1 SEC (26.3-35.5)
[2024-05-25 10:12] VITALS: BP 95/47; PULSE 54; RESP 18; TEMP 97.2
--- NOTE | 2024-05-25 10:58 | EKG ---
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 : 1940 Requested By: DAKOTA NAPOLES Order Number: [id number] Reading MD: José Miguel Begum Measurements Intervals [place] Rate: 56 P: 5 [place]: 183 QRS: 1 QRSD: 126 T: 33 QT: 516 QTc: 497 Interpretive Statements Sinus rhythm Atrial premature complex Nonspecific intraventricular conduction delay Repol abnrm suggests ischemia, diffuse leads Compared to ECG 04/07/2024 09:03:57 Atrial premature complex(es) now present Intraventricular conduction delay now present Early repolarization now present Possible ischemia now present T-wave abnormality no longer present Electronically Signed On 05-26-2024 07:03:25 CDT by José Miguel Begum Please click the below link to view image of tracing.
--- NOTE | 2024-05-25 12:44 | NUR ---
REPORT REPORTED LOW BLOOD PRESSURES AND BLOOD PRESSURE MEDICATIONS TO KEYLA SANTANA. RECEIVED INSTRUCTIONS TO HAVE PT STOP TAKING LOSARTAN IF HE IS ON IT AND IF HE IS ON METOPROLOL THE WAY HE SHOULD BE TO HOLD MORNING OF PROCEDURE. PT NOTIFIED AND STATED HE IS NOT ON LOSARTAN THAT HE IS ON METOPROLOL. PT INSTRUCTED TO HOLD METOPROLOL MORNING OF PROCEDURE BUT TO BRING ALL HIS MEDS IN
--- NOTE | 2024-05-25 13:06 | HMCIMG ---
CHEST 1VW HISTORY: Preop COMPARISON: 03/16/2024 FINDINGS: A frontal projection of the chest was obtained. Mild bilateral pulmonary infiltrates are seen may be related to mild pulmonary vascular congestion with possible superimposed pneumonitis. The heart is borderline enlarged. Degenerative changes are seen. Aortic calcifications are seen. IMPRESSION: 1. Mild bilateral pulmonary infiltrates are seen may be related to mild pulmonary vascular congestion with possible superimposed pneumonitis.
--- NOTE | 2024-05-26 10:00 | NUR ---
RE: LABS REPORTED CBC RESULTS TO MAX GUAJARDO. RECEIVED ORDERS TO CANCEL PROCEDURE.
--- NOTE | 2024-05-27 14:30 | HP ---
[facility] HISTORY AND PHYSICAL Date of Service: May 27, 2024 Time of Service: 14:24 HISTORY OF PRESENT ILLNESS: [ ] Date of admission 05/27/2024 PCP Maricruz Martins MD Chief complaint abnormal labs from government guard's office low hemoglobin This is a 83-year-old male was sent by his government guard's Dr. Brito's office patient was scheduled to have a left heart catheterization preop labs reveal low hemoglobin: Left heart cath. was canceled; patient was instructed to come to ER for further evaluation and intervention. Patient is on blood thinners for AFib Eliquis last dose was yesterday. Patient reports no active bleeding reports being on Iron supplements: dart tardy stools. The patient has a well-known history of small intestine bleed 10 years ago. Patient continues with dyspnea on exertion patient is on Lasix. Patient has a history of severe vascular aortic stenosis. Patient's last admission in March of 2023 hemoglobin was 11.3. Patient denied chest pain, Labs labs on 05/25/2024 Home medication Eliquis5 mg p.o. b.i.d., metoprolol 50 b.i.d. amiodarone 200 mg b.i.d. Lasix 40 mg daily. Amitriptyline 10 mg at bedtime and Sertraline HCL 25 mg in a.m.125 mg at bedtime Patient is seen in ED patient is fully awake alert oriented x3. noted plus one edema to lower extremities he is currently on room air. We will consult government guard's patient's we will received 1 unit of packed RBCs today. REVIEW OF SYSTEMS A14 point ROS was obtained all relevant positives were documented otherwise ROS negative PAST MEDICAL HISTORY: [ ] PAST SURGICAL HISTORY: [ ] PAST SOCIAL HISTORY: [ ] FAMILY HISTORY: [ ] Coded Allergies: No Known Allergies (Unverified Allergy, Unknown, 01/23/23) PHYSICAL EXAM GENERAL APPEARANCE: The patient is awake, alert, and oriented, in no acute cardiopulmonary distress. NEUROLOGICAL: Cranial nerves II-XII grossly intact. Motor is 5/5 in bilateral upper and lower extremities proximal to distal. No sensory deficits. HEENT: Face is symmetric. Pupils are equal and reactive. Extraocular movements are intact. NECK: Supple. No JVD. No thyromegaly. No submental, submandibular, pre- /postauricular, occipital or supraclavicular lymphadenopathy. CHEST: Normal chest expansion. No Telemetry. LUNGS: Absence of any rales, rhonchi or any wheezing. CARDIOVASCULAR: Regular. S1 and S2 normal. No appreciable rubs, murmurs or gallops. ABDOMEN: Soft, nontender, and nondistended. There is no rebound, voluntary guarding, or rigidity. : Deferred. No Keenan. EXTREMITIES: Non-edematous and not cyanotic. No clubbing. Good capillary refill. SKIN: No skin breakdown. 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 PRN: MEDICATIONS Tylenol 650 mg po every 4 hrs for fever zofran 4 mg IV every 6 hrs for n/v Hydralazine 5 mg IV every 4 hrs systolic pressure > 160 bowel regiment: lactulose 20 gm PO BID PRN constipation Pain management: Supportive measures: DVT ppx, GI ppx all questions answered time spent: > 35 min Supervising MD: Dr. Goyal c/chivo This document was generated in part using voice recognition software, occasional wrong word or sound alike substitutions may have occurred due to the inherent limitations of voice recognition software. Read the chart carefully and recognize using context, where the substitutions have occurred. Although every effort was made to edit the content, employee benefits manager and typing errors may occur ADVANCED CARE PLANNING 1. Which of the following were discussed? Hospice Care - Yes / No Therapeutic options - Yes / No Advance Directives - Yes / No Other discussions - 2. Discussed with who? 3. Voluntary nature of this service was explained to the patient? Yes / No 4. Amount of time spent - 5. Reviewed by Physician? (if this service was performed by NPP) Yes / No ATTESTATION BY PHYSICIAN I have seen and examined the patient. I reviewed the documentation, medical decision making, and treatment plan as noted by the mid-level provider above. I agree with the findings and plan of care. ELVIA GOYAL MD, ELIZABETH NP May 27, 2024 14:30
== END | disposition home or self-care (01) ==
LOC: DAH 08:00 → EDSTATUS 08:00 → DAH 05-27 11:33
PROVIDERS: ATTEND Internal Medicine Cardiovascular Disease
DX: Z01.818 Encounter for other preprocedural examination (principal); I49.1 Atrial premature depolarization; I45.89 Other specified conduction disorders; I35.0 Nonrheumatic aortic (valve) stenosis; J98.4 Other disorders of lung; M47.814 Spondylosis without myelopathy or radiculopathy, thoracic region; I70.0 Atherosclerosis of aorta; I48.91 Unspecified atrial fibrillation; R91.8 Other nonspecific abnormal finding of lung field
CPT/HCPCS: 36415; 71045; 80048; 85025; 85610; 85730; 93005; J2470